=== PATIENT | female | born 1965 | race American Indian/Alaskan Native ===

== ENCOUNTER 2016-06-29 06:38 | Day surgery (SDC) | payer MEDICAID ==
[2016-06-21 13:41] VITALS: BMI 28.3
[2016-06-21 13:46] VITALS: RESP 18
[2016-06-29] MEDS ORDERED: Propofol 10 mg/ml Inj (20 ML) ONE (07:03)
[2016-06-29] MEDS ORDERED: Succinylcholine 200 mg/10 ml Inj IV ONE (07:04)
[2016-06-29] MEDS ORDERED: ePHEDrine 50 mg/ml Inj ONE (07:04)
[2016-06-29] MEDS ORDERED: Rocuronium 10 mg/ml (5 ml) ONE (07:04)
[2016-06-29] MEDS ORDERED: Sevoflurane - Inhalation Anesthetic Liq (250 ml) ONE (07:16)
[2016-06-29] MEDS ORDERED: Lidocaine 1% Inj (20ml) ONE (07:33)
[2016-06-29] MEDS ORDERED: Lidocaine 1% w Epi 1:100,000 Inj ONE (07:43)
[2016-06-29] MEDS ORDERED: Bupivacaine 0.5% Inj(30mL) ONE (08:53)
[2016-06-29] MEDS ORDERED: Bupivacaine 0.5% 50 ML IJ ONE ×2 (09:01→09:21)
[2016-06-29] MEDS ORDERED: Albuterol 0.083% Inhal Sol (2.5 mg/3 mL) UD INH ONE (09:33)
--- NOTE | 2016-06-29 09:33 | PCM.SURG1 ---
Surgeon's Initial Post Op Note - Surgeon's Notes Surgeon: Dr. Reyna [facility] Guest Service Agent: Dr. Ferraro Type of Anesthesia: General LMA Pre-Operative Diagnosis: hidradenitis of left and right axilla Operative Findings: see operative report Post-Operative Diagnosis: see operative report Operation Performed: excision of hidradenitis of left and right axilla Specimen/Specimens Removed: subcutaneous tissue Estimated Blood Loss: EBL {In ML}: 5 Blood Products Given: N/A Drains Used: No Drains Post-Op Condition: Good Date of Surgery/Procedure: 06/29/16 Time of Surgery/Procedure: 09:00
--- NOTE | 2016-06-29 09:37 | CP.SDSHP ---
Same Day Surgery H & P - History Proposed Procedure: excision of hidradenitis of left and right axilla Pre-Op Diagnosis: hidradenitis suppurativa - Previous Medical/Surgical History Cardiac: Other (Hx of [place]) - Allergies Allergies: Allergies aloe Allergy (Intermediate, Verified 06/29/16 07:34) RASH [place] And Derivatives Allergy (Intermediate, Verified 06/29/16 07:34) RASH metronidazole Allergy (Intermediate, Verified 06/29/16 07:34) RASH aspirin Allergy (Verified 06/29/16 07:34) ITCHING clopidogrel bisulfate [From Plavix] Allergy (Verified 06/29/16 07:34) ITCHING hydromorphone Allergy (Verified 06/29/16 07:34) VOMITING ibuprofen Allergy (Verified 06/29/16 07:34) STOMACH BLEEDING ketorolac tromethamine [From Toradol] Allergy (Verified 06/29/16 07:34) ITCHING midazolam HCl [From Versed] Allergy (Verified 06/29/16 07:34) NAUSEA vancomycin Allergy (Verified 06/29/16 07:34) ITCHING morphine Adverse Reaction (Mild, Verified 06/29/16 07:34) ITCHING ciprofloxacin [From Cipro] Adverse Reaction (Verified 06/29/16 07:34) SWELLING ciprofloxacin HCl [From Cipro] Adverse Reaction (Verified 06/29/16 07:34) SWELLING - Physical Exam Vital Signs: Vital Signs 06/29/16 07:30 Temperature 98.2 F Pulse Rate 84 Respiratory 18 Rate Blood Pressure 119/79 O2 Sat by Pulse 98 Oximetry Mental Status: Alert & Oriented x3 Neuro: WNL Heart: WNL Lungs: WNL GI: WNL - {Optional Preform as Required} Abdomen: WNL Integument: Other (hidradenitis suppuritiva of left and right axilla) - Impression Pt. Evaluated Today:Candidate for Anesthesia & Procedure: Yes Short Stay Discharge - Short Stay Discharge Admitting Diagnosis/Reason for Visit: L73.2 Disposition: HOME/ ROUTINE Referrals: Daisy Oviedo MD [Primary Care Provider] -
[2016-06-29] MEDS ORDERED: Oxycodone/Acetaminophen 5/325 mg Tab PO PRN ×2 (10:48→10:49)
[2016-06-29] MEDS ORDERED: Lactated Ringer's 1,000 ML IV ONE (11:45)
[2016-06-29 12:01] VITALS: TEMP 98; O2SAT 94
[2016-06-29] MEDS ORDERED: PHENOBARBITAL 20 MG/5 ML PO SCH (13:00)
[2016-06-29] MEDS ORDERED: PHENYTOIN PO SCH (13:00)
[2016-06-29 14:03] VITALS: BP 100/61; PULSE 92
[2016-07-01] MEDS ORDERED: Enoxaparin 40 mg Syringe SC SCH (09:00)
--- NOTE | 2016-08-24 08:45 | OP ---
PROCEDURE DATE: 06/29/2016 SURGEON: Etienne Reyna MD PLUMBING INSPECTOR: Dr. Ferraro. ANESTHESIA: LMA. PREOPERATIVE DIAGNOSIS: Hidradenitis. POSTOPERATIVE DIAGNOSIS: Hidradenitis. OPERATIVE PROCEEDINGS: As follows: The patient was taken to the operating room and placed supine on the operating table. After induction of anesthesia, the patient's axillas were prepped and draped i n standard surgical fashion. The area of hidradenitis was examined and elliptical incision approxima tely 2 cm in length was made over the right axilla, carried down through the skin and subcutaneous ti ssues. The subcutaneous tissues were used to achieve hemostasis with the electrocautery. Once hemos tasis was achieved, the area was then reapproximated using interrupted 3-0 chromic suture for the sánchez per tissues and 4-0 Monocryl for the skin. Attention was then turned to the left axilla, which had a similar area. This was excised in an elliptical fashion using the #15 blade, carried down through t he skin and subcutaneous tissues. The electrocautery was used to divide the area and achieve hemosta sis. The deeper tissues were then reapproximated using 3-0 chromic suture and the skin was closed us ing 4-0 Monocryl. The patient had 10 mL of 0.25% Marcaine infiltrated into the wounds, was awakened from anesthesia, transported to the recovery room in satisfactory condition. Sponge, instrument, and needle counts were correct at the end of the case. Etienne Reyna MD cc: [id number] TT: 08/23/2016 17:01:22 sn
== END 2016-06-29 13:50 | disposition home or self-care (01) ==
LOC: H.OPSURG 06:38
PROVIDERS: ATTEND Surgery
DX: L73.2 Hidradenitis suppurativa (principal); I25.2 Old myocardial infarction; I25.10 Atherosclerotic heart disease of native coronary artery without angina pectoris; I10 Essential (primary) hypertension; F17.210 Nicotine dependence, cigarettes, uncomplicated; G40.909 Epilepsy, unspecified, not intractable, without status epilepticus; Z86.73 Personal history of transient ischemic attack (TIA), and cerebral infarction without residual deficits

== ENCOUNTER 2016-07-04 09:39 | Emergency (ER) | payer MEDICAID ==
[2016-07-04 09:39] VITALS: BMI 28.3
[2016-07-04 09:55] VITALS: BP 115/73; PULSE 89; RESP 19; TEMP 98.1; O2SAT 100
--- NOTE | 2016-07-04 11:53 | RAD ---
PROCEDURE: Radiographs of the Sacrum and Coccyx HISTORY: fall injury COMPARISON: Lumbar spine radiographs performed 07/03/14, CT of the abdomen and pelvis performed 09/19/13 TECHNIQUE: Frontal and lateral views of the sacrum and coccyx FINDINGS: BONES: Osseous demineralization. No acute displaced fracture identified. SACROILIAC JOINTS: Unremarkable. OTHER FINDINGS: Probable calcified injection granulomas evident. Pelvic calcifications, likely phleboliths. Metallic ring noted consistent with external artifact. IMPRESSION: No acute displaced fracture identified. Additional incidental findings as above.
--- NOTE | 2016-07-04 12:07 | ED PDOC ---
HPI: Back Time Seen by Provider: 07/04/16 10:49 Chief Complaint (Nursing): Back Pain Chief Complaint (Provider): lower back pain History Per: Patient History/Exam Limitations: no limitations Additional Complaint(s): 89yo F with hx of epilepsy i ED after fall onto coccyx 3d ago without relief with perocet and pain on sitting on buttock area. denies: incontinence of UA/BM , numbness/tingling, numbness to LE, abd pain, rectal bleeding or hematuria. denies head injury at time of fall. Past Medical History Reviewed: Historical Data, Nursing Documentation, Vital Signs Vital Signs: Last Vital Signs Temp 98.1 F 07/04/16 09:54 Pulse 89 07/04/16 09:54 Resp 19 07/04/16 09:54 BP 115/73 07/04/16 09:54 Pulse Ox 100 07/04/16 09:54 - Medical History PMH: Arthritis, Asthma, Bronchitis, CAD, CVA, Diverticulitis, HTN, Pneumonia, Seizures, TIA Denies: Anxiety (denies), Dementia, Chronic Kidney Disease - Surgical History Surgical History: Cholecystectomy, Hernia Repair - Family History Family History: States: Unknown Family Hx - Home Medications Home Medications: Ambulatory Orders Medication Instructions Recorded Oxycodone HCl/Acetaminophen 1 tab PO Q6H PRN 07/02/14 [Endocet 10-325 mg Tablet] Phenobarbital 6 ml PO TID 07/02/14 Phenytoin [Dilantin] 6 ml PO TID 07/02/14 Enoxaparin [Lovenox] 40 mg SUBCUT DAILY 06/16/15 ALPRAZolam [Xanax] 1 mg PO BID PRN 07/29/15 oxyCODONE/Acetaminophen [Percocet 5 - 325 mg PO Q4 PRN 06/29/16 5/325 mg Tab] - Allergies Allergies/Adverse Reactions: Allergies Allergy/AdvReac Type Severity Reaction Status Date / Time aloe Allergy Intermediate RASH Verified 06/29/16 07:34 [place] And Derivatives Allergy Intermediate RASH Verified 06/29/16 07:34 metronidazole Allergy Intermediate RASH Verified 06/29/16 07:34 aspirin Allergy ITCHING Verified 06/29/16 07:34 clopidogrel bisulfate Allergy ITCHING Verified 06/29/16 07:34 [From Plavix] hydromorphone Allergy VOMITING Verified 06/29/16 07:34 ibuprofen Allergy STOMACH Verified 06/29/16 07:34 BLEEDING ketorolac tromethamine Allergy ITCHING Verified 06/29/16 07:34 [From Toradol] midazolam HCl [From Versed] Allergy NAUSEA Verified 06/29/16 07:34 vancomycin Allergy ITCHING Verified 06/29/16 07:34 morphine AdvReac Mild ITCHING Verified 06/29/16 07:34 ciprofloxacin [From Cipro] AdvReac SWELLING Verified 06/29/16 07:34 ciprofloxacin HCl AdvReac SWELLING Verified 06/29/16 07:34 [From Cipro] Review of Systems ROS Statement: Except As Marked, All Systems Reviewed And Found Negative Constitutional: Negative for: Weakness, Malaise Musculoskeletal: Positive for: Back Pain Physical Exam - Reviewed Nursing Documentation Reviewed: Yes Vital Signs Reviewed: Yes - Physical Exam Appears: Positive for: Well, Non-toxic, No Acute Distress Head Exam: Positive for: ATRAUMATIC, NORMAL INSPECTION, NORMOCEPHALIC Skin: Positive for: Normal Color, Warm, DRY Cardiovascular/Chest: Positive for: Regular Rate, Rhythm Respiratory: Positive for: CNT, Normal Breath Sounds Gastrointestinal/Abdominal: Positive for: Normal Exam, Bowel Sounds, Soft. Negative for: Tenderness Back: Positive for: Other (lower back pain-sacral area with swelling and tenderess limited ROM to LE. ) Extremity: Positive for: Normal ROM Neurologic/Psych: Positive for: Alert, Oriented - ECG O2 Sat by Pulse Oximetry: 100 - Radiology X-Ray: Interpreted by Me, Read By Radiologist X-Ray Interpretation: No Acute Disease Medical Decision Making Medical Decision Making: dx: contusion to saccral area advised to use donut for pain advise to use percocet for pain but not to abuse it and to f/.u withh PTx and pmd Disposition - Clinical Impression Clinical Impression: Sacral contusion - Patient ED Disposition Is Patient to be Admitted: No Counseled Patient/Family Regarding: Studies Performed, Diagnosis, Need For Followup - Disposition Disposition: Routine/Home Disposition Time: 12:08 Condition: STABLE Instructions: Contusion in Adults (DC)
== END 2016-07-04 12:20 | disposition home or self-care (01) ==
LOC: H.ER 09:39
DX: S30.0XXA Contusion of lower back and pelvis, initial encounter (principal); W19.XXXA Unspecified fall, initial encounter; Y92.89 Other specified places as the place of occurrence of the external cause; G40.909 Epilepsy, unspecified, not intractable, without status epilepticus; F03.90 Unspecified dementia, unspecified severity, without behavioral disturbance, psychotic disturbance, mood disturbance, and anxiety; I12.9 Hypertensive chronic kidney disease with stage 1 through stage 4 chronic kidney disease, or unspecified chronic kidney disease; Z86.73 Personal history of transient ischemic attack (TIA), and cerebral infarction without residual deficits

== ENCOUNTER 2016-09-18 09:30 | Inpatient (IN) | payer MEDICAID ==
[2016-09-18 09:34] VITALS: BMI 30.9
[2016-09-18 10:16] LABS: BASO # 0.1 K/uL (0.0-0.2); BASO % 0.8 % (0.0-2.0); EOS # 0.1 K/uL (0.0-0.7); EOS % 1.4 % (0.0-4.0); HEMATOCRIT 41.3 % (34.0-47.0); LYMPH % 46.5 % (20.0-40.0); MEAN CELL VOLUME 87.6 fl (81.0-99.0); MEAN CORPUSCULAR HEMOGLOBIN 29.1 pg (27.0-31.0); MEAN CORPUSCULAR HGB CONC 33.2 g/dL (33.0-37.0); MEAN PLATELET VOLUME 6.6 fl (7.2-11.7); MONO # 0.5 K/uL (0.0-0.8); MONO % 5.4 % (0.0-10.0); NEUT # 3.9 K/uL (1.8-7.0); NEUT % 45.9 % (50.0-75.0); NRBC % 0.2 % (0.0-0.0); RED CELL DISTRIBUTION WIDTH 14.2 % (11.5-14.5); WHITE BLOOD COUNT 8.5 K/uL (4.8-10.8)
--- NOTE | 2016-09-18 10:16 | ED PDOC ---
HPI:STROKE - Time Time: 10:00 - Historian Historian: Patient - Chief Complaint Chief Complaint: Weakness, Slurred speech, Facial droop - Onset Onset: Hours (1) - Timing Timing: Currently Symptomatic - Location Locate left: Upper extremity - Associated Symptoms Associated symptoms:: Anticoagulant use - Exacerbated by Exacerbated by:: Nothing - Relieved by Relieved by:: Nothing - TPA Positive for Contraindication: Yes Reason tPA is not being Administered: pt takes daily 10 am to 11 am lovenox injections - Notes: Notes:: pt was found by spouse confused and not speaking at around 9am. possible mild right sided facial droop that resolved. hx of stroke 10 yrs ago. chronic right sided contraction from prev injury pt is wc bound with chronic numbness and weakness of bilateral le. left sided weakness noted. hx of seizure disorder. pmd erin sloan. per family at bedside pt was up all night and noticed that she developed left facial droop and left arm weakness, pt injects lovenox daily approx at 10 to 11am for prev cva. allergy to asa and plavix NIHSS Stroke Scale - Date/Time Evaluation Performed Date Performed: 09/18/16 Time Performed: 10:00 When Was NIHSS Performed: Baseline - How Severe is the Stroke Level of Consciousness: 1=Drowsy LOC to Questions: 2=Neither correct LOC to commands: 2=Neither correct Best Gaze: 0=Normal Visual: 0=No visual loss Facial: 0=Normal Motor Arm - Left: 1=Drift noted before 10 sec Motor Arm - Right: NA - Amputation, joint fusion Motor Leg - Left: NA - Amputation, joint fusion Motor Leg - Right: NA - Amputation, joint fusion (per family at bedside have chronic le weakness and numbness) Limb Ataxia: 0=Absent Sensory: 1=Mild to moderate loss Best Language: 2=Severe aphasia Dysarthia: 2=Severe, near unintelligible or worse Extinction & Inattention (Neglect): 0=Normal, no object Score: 11 rTPA Inclusion/Exclusion - Refusal of Treatment Patient Refused Treatment: No - Inclusion Criteria for Altepase Patient is 18 years or Older: Yes The Clinical Diagnosis of Ischemic Stroke That is Causing a Potentially Disabling Neurological Deficit: Yes Time of Onset is Well Established to be Less Than 270 Minute Before Treatment Would Begin: Yes Risk/Benefit Discussed With Patient/Family Member Present: Yes - Exclusion Criteria for Altepase Uncontrolled Hypertension at Time of Treatment (Systolic BP above 185 or Diastolic BP above 110 mmHg): No Active Internal Bleeding: No Known Bleeding Diathesis Including but Not Limited to: Platelets Below 100,000/ mm,PTT Above 40 sec After Heparin Use, Current Use of Oral Anitcoagulant With INR Greater Than 1.7 or PT Greater Than 15 secs: No Evidence of an Intracranial Hemorrhage: No Evidence of Major Acute Infarct With Signs Greater Than 1/3 MCA Territory: No Suspicion of Subarachnoid Hemorrhage on Pretreatment Evaluation Even if CT Head Negative For Hemorrhage: No - Warning to TPA With Conditions Additional Condition (For 3-4.5 Hour Window): Any anticoagulant use prior to admission (Even if INR less than 1.7) Past Medical History Reviewed: Historical Data, Nursing Documentation, Vital Signs Vital Signs: Last Vital Signs Temp 98.7 F 09/18/16 09:32 Pulse 84 09/18/16 10:00 Resp 21 09/18/16 10:00 BP 142/92 H 09/18/16 10:00 Pulse Ox 95 09/18/16 10:00 - Medical History PMH: Arthritis, Asthma, Bronchitis, CAD, CVA, Diverticulitis, HTN, Migraine, Pneumonia, Seizures, TIA Denies: Anxiety (denies), Dementia, Chronic Kidney Disease - Surgical History Surgical History: Cholecystectomy, Hernia Repair - Family History Family History: States: Unknown Family Hx - Living Arrangements Living Arrangements: With Family - Social History Current smoker - smoking cessation education provided: Yes - Home Medications Home Medications: Ambulatory Orders Medication Instructions Recorded Oxycodone HCl/Acetaminophen 1 tab PO Q6H PRN 07/02/14 [Endocet 10-325 mg Tablet] Phenobarbital 6 ml PO TID 07/02/14 Phenytoin [Dilantin] 6 ml PO TID 07/02/14 Enoxaparin [Lovenox] 40 mg SUBCUT DAILY 06/16/15 ALPRAZolam [Xanax] 1 mg PO BID PRN 07/29/15 - Allergies Allergies/Adverse Reactions: Allergies Allergy/AdvReac Type Severity Reaction Status Date / Time aloe Allergy Intermediate RASH Verified 09/18/16 09:32 [place] And Derivatives Allergy Intermediate RASH Verified 09/18/16 09:32 metronidazole Allergy Intermediate RASH Verified 09/18/16 09:32 aspirin Allergy ITCHING Verified 09/18/16 09:32 clopidogrel bisulfate Allergy ITCHING Verified 09/18/16 09:32 [From Plavix] hydromorphone Allergy VOMITING Verified 09/18/16 09:32 ibuprofen Allergy STOMACH Verified 09/18/16 09:32 BLEEDING ketorolac tromethamine Allergy ITCHING Verified 09/18/16 09:32 [From Toradol] midazolam HCl [From Versed] Allergy NAUSEA Verified 09/18/16 09:32 vancomycin Allergy ITCHING Verified 09/18/16 09:32 morphine AdvReac Mild ITCHING Verified 06/29/16 07:34 ciprofloxacin [From Cipro] AdvReac SWELLING Verified 06/29/16 07:34 ciprofloxacin HCl AdvReac SWELLING Verified 06/29/16 07:34 [From Cipro] Review of Systems Review Of Systems: ROS cannot be obtained secondary to pt's inabilty to answer questions. Constitutional: Negative for: Fever, Chills Physical Exam - Reviewed Nursing Documentation Reviewed: Yes Vital Signs Reviewed: Yes - Physical Exam Appears: Positive for: In Acute Distress (mild) Head Exam: Positive for: ATRAUMATIC, NORMAL INSPECTION, NORMOCEPHALIC Eye Exam: Positive for: Normal appearance, EOMI, PERRL Neck: Positive for: Normal, Painless ROM, Supple Cardiovascular/Chest: Positive for: Regular Rate, Rhythm, Chest Non Tender. Negative for: Edema, Gallop Respiratory: Positive for: Normal Breath Sounds. Negative for: Decreased Breath Sounds, Accessory Muscle Use, Crackles Gastrointestinal/Abdominal: Positive for: Normal Exam, Bowel Sounds, Soft. Negative for: Tenderness Back: Positive for: Normal Inspection. Negative for: L CVA Tenderness, R CVA Tenderness Extremity: Positive for: Normal ROM. Negative for: Tenderness, Pedal Edema Neurologic/Psych: Positive for: Alert, Oriented, Motor/Sensory Deficits (left sided weakness), Aphasia. Negative for: Facial Droop - Laboratory Results Result Diagrams: 09/18/16 09:50 09/18/16 10:50 - ECG ECG: Positive for: Interpreted By Me ECG Rhythm: Positive for: Normal QRS, Normal ST Segment, Sinus Rhythm. Negative for: ST/T Changes Interpretation Of Abn EKG: rate of 91 no evidence of ischemia O2 Sat by Pulse Oximetry: 95 Pulse Ox Interpretation: Normal - Radiology X-Ray: Interpreted by Me X-Ray Interpretation: No Acute Disease, Other (port in place) - Progress ED Course And Treament: discussed case with Dr Erin Sloan and Dr Darden and noth agreed that the pt lovenox use chronically and within 24 hours of presentation contraindicated use of tpa, ct head red as negative per rads. will perform cta and see if pt is eligible for clot retrieval. Re-evaluation Time: 10:20 Condition: Improved Medical Decision Making Medical Decision Makinpm pt sx have improved no left ue drift sx are improving more responsvie. cta of head was limited but no occlusion or significant stenosis no aneurysm. will admit to family practice will hold aspirin and plavix given pt allergy. per fp pt attending ernesto per Dr hendricks will have MOC to admit Disposition - Clinical Impression Clinical Impression: Altered mental status - Patient ED Disposition Is Patient to be Admitted: Yes Counseled Patient/Family Regarding: Studies Performed, Diagnosis - Disposition Disposition Time: 14:28 Condition: STABLE
[2016-09-18] MEDS ORDERED: Sodium Chloride 0.9% 500 ML IV ONE (10:23)
--- NOTE | 2016-09-18 10:32 | RAD ---
HISTORY: ams COMPARISON: 06/21/2016 FINDINGS: LUNGS: Mild increased pulmonary vascular congestion. No focal airspace opacity identified. PLEURA: No significant pleural effusion identified, no pneumothorax apparent. CARDIOVASCULAR: Normal. OSSEOUS STRUCTURES: No significant abnormalities. VISUALIZED UPPER ABDOMEN: Upper abdomen is suboptimally evaluated. OTHER FINDINGS: Right-sided medication port with the distal tip of the catheter overlying the projection of the SVC/right atrial junction. IMPRESSION: Increased pulmonary vascular congestion. Please note that chest radiographs have low sensitivity for small pulmonary nodules. If indicated, chest CT should be obtained.
[2016-09-18 10:33] LABS: PARTIAL THROMBOPLASTIN TIME 28.4 Seconds (25.6-37.1)
[2016-09-18] MEDS ORDERED: Iodixanol 320 MG/ML 100 ML BOTTLE IV ONE (11:31)
[2016-09-18] MEDS ORDERED: Sodium Chloride 0.9% 50 ML IV ONE (11:32)
[2016-09-18 11:51] LABS: ALB/GLOB RATIO 1.2 (1.0-2.1); ALKALINE PHOSPHATASE 154 U/L (38-126); ALT/SGPT 29 U/L (9-52); AST/SGOT 22 U/L (14-36); BILIRUBIN,TOTAL 0.2 mg/dl (0.2-1.3); BLOOD UREA NITROGEN 9 mg/dl (7-17); CALCIUM 9.8 mg/dL (8.4-10.2); CARBON DIOXIDE 23 mmol/L (22-30); CHLORIDE 106 mmol/L (98-107); CHOLESTEROL 199 mg/dL (0-199); GFR AFRICAN-AMERICAN > 60; GLUCOSE,RANDOM 87 mg/dL (65-105); POTASSIUM 3.9 MMOL/L (3.6-5.0); SODIUM 140 mmol/l (132-148); TOTAL PROTEIN 7.9 G/DL (6.3-8.2)
[2016-09-18] MEDS ORDERED: Naloxone 0.4 mg/ml Inj (Adult) IVP ONE (14:46)
[2016-09-18 15:34] LABS: RBC URINE 19 /hpf (0-3); URINE BILIRUBIN NEGATIVE (NEGATIVE); URINE BLOOD NEGATIVE (NEGATIVE); URINE COLOR YELLOW (YELLOW); URINE GLUCOSE (UA) NEG (Normal); URINE KETONE TRACE mg/dL (NEGATIVE); URINE LEUKOCYTE ESTERASE NEG Leu/uL (Negative); URINE PROTEIN 30 mg/dL (NEGATIVE); URINE UROBILINOGEN 0.2-1.0 mg/dL (0.2-1.0); WBC URINE 1 /hpf (0-5)
--- NOTE | 2016-09-18 16:53 | CT ---
PROCEDURE: CT angiogram of the brain dated 09/18/2016. HISTORY: Code stroke. COMPARISON: Comparison made with CT scan brain dated 07/02/2014. TECHNIQUE: CT angiography of the intracranial arteries was performed following intravenous injection of approximately 95 cc of Visipaque 320 contrast material. . Coronal and sagittal maximum intensity projection reformated images were generated. This CT exam was performed using one or more of the following dose reduction techniques: Automated exposure control, adjustment of the mA and/or kV according to patient size, and/or use of iterative reconstruction technique. Radiation dose. Total DLP = 1129.24 mGy - cm. FINDINGS: The current study is quite limited due to significant motion artifact which obscures fine soft tissue and bone detail. Note that all the vessels are poorly delineated. The visualized portions of the PE trace and cavernous as well as supraclinoid segments of the carotid arteries appear patent so far as can be seen. The vertebral arteries are poorly delineated however the basilar artery does appear patent. The visualized major branches of the [place] so far as can be seen appear patent. The distal cerebral vasculature of the anterior middle and posterior cerebral arteries are relatively symmetric so far as can be seen. No large aneurysm nor vascular malformation. This should be repeated. . Note made of of apparent partially empty sella. No gross on enhancing masses or collections. No evidence of a very large acute infarct on this limited study. Impression: Very limited exam as above. Note and definitive radiographic evidence of occlusion nor large aneurysm nor vascular malformation however the study should be repeated of. See above discussion for additional findings.
[2016-09-18] MEDS: Sodium Chloride 0.45% 1,000 ML IV SCH (17:44)
[2016-09-18] MEDS: Phenytoin 100 mg/2 ml Inj IVPB SCH (19:00)
--- NOTE | 2016-09-18 21:09 | CT ---
EXAM: CT Head Without Intravenous Contrast CLINICAL HISTORY: 51 years old, female; Signs and symptoms; Altered mental status/memory loss and other: Numbness and weakness TECHNIQUE: Axial computed tomography images of the head/brain without intravenous contrast. This CT exam was performed using one or more of the following dose reduction techniques: automated exposure control, adjustment of the mA and/or kV according to patient size, and/or use of iterative reconstruction technique. EXAM DATE/TIME: 09/18/2016 8:14 PM COMPARISON: Recent CT angiogram of the brain 09/18/2016 11:56 AM FINDINGS: ARTIFACTS: Exam is overall limited, secondary to asymmetric positioning of the patient's head in the CT scan and streak artifact. BRAIN: Diffuse, mild, age-related cortical atrophy and ventriculomegaly. No definite acute abnormalities. No acute hemorrhage seen within the brain. No acute extra-axial fluid collections visualized. No definite intracranial mass effect. VENTRICLES: See above. BONES/JOINTS: No acute fractures or other acute bony abnormality noted. SOFT TISSUES: No acute abnormality of the visualized soft tissues is seen. SINUSES: Visualized paranasal sinuses appear clear. MASTOID AIR CELLS: Mastoid air cells appear clear. IMPRESSION: - Limited exam. No definite acute findings seen within the brain. - See above for remaining findings.
--- NOTE | 2016-09-18 21:28 | PCM.RRTMUL ---
<Machelle Salmon - Last Filed: 09/18/16 21:26> CURB ATTENDANT Nurse Assessment - Situation CURB ATTENDANT Responder Arrival Time:: 20:10 Location:: tele Room Number:: 418/2 CURB ATTENDANT Reason for Call: Possible Stroke CURB ATTENDANT Called By: RN - IV IV Inserted during CURB ATTENDANT?: No - Respiratory Oxygen Delivery Method:: Room Air - Diagnostic Test Ordered EKG:: Yes (NSR, no acute changes ) CT Scan:: Yes (unchanged from previous CT done in ED hours prior) - Stat Labs Ordered CURB ATTENDANT Stat Labs Ordered:: CBC CURB ATTENDANT Other Labs Ordered:: CMP CPR started during CURB ATTENDANT?: No - Vital Signs Blood Pressure:: 100/67 Pulse Rate:: 74 Respiratory Rate:: 18 Temperature:: 98.4 F - Time CURB ATTENDANT Ended Time CURB ATTENDANT Ended:: 20:45 - Vital Signs at end of CURB ATTENDANT Blood Pressure:: 111/68 Pulse Rate:: 83 Respiratory Rate:: 20 - Recommendations 5) CURB ATTENDANT Level of Care Recommendations: Remain in current setting - A) Initial Vital Signs: Blood Pressure: 111/68 Pulse Rate: 83 - B) Neurological Status (Select all that apply): Responsive - Constitutional Appears: Older Than Stated Age - Head Additional Comments: some facial asymmetry - Respiratory Exam Respiratory Exam: Clear to Ausculation Bilateral, NORMAL BREATHING PATTERN. absent: Wheezes - Cardiovascular Exam Cardiovascular Exam: REGULAR RHYTHM, +S1, +S2 - GI/Abdominal Exam GI & Abdominal Exam: Soft, Normal Bowel Sounds - Neurological Exam Neurological Exam: Awake, Motor Sensory Deficit Plan - A. End of CURB ATTENDANT Vital Signs: Blood Pressure: 111/68 Pulse Rate: 83 - B. Assessment of Findings&Treatment Plan 51 y/o female CURB ATTENDANT called for weakness and numbness, pt was admitted a couple of hours earlier today, for code stroke CT head ordered STAT, to rule out acute hemorrhage CBC CMP labs were not obtained during CURB ATTENDANT, as access was an issue but it will be obtained , f/u results <Carson Richards - Last Filed: 09/21/16 20:28> - C) Respiratory Oxygen Delivery Method: Nasal Cannula @L/min (I saw and examined this patient shoulder to shoulder to Dr Salmon. The assessment and plan outlined indicate my direct input. The patient was admitted with a Diagnosis of Acute on chronic CVA with right facial weakness which according to the Nurse had resolved and returned. # Diagnosis remained Acute on chronic CVA. A repeated CT of Brain was non diagnostic because of motion artifact. Blood work was not drawn because of difficult veins and the family member prohibiting further trial to acquire blood for lab work. The patient was continued with the indicated treatment along with neuro checks. Carson Richards MD)
[2016-09-18] MEDS: Enoxaparin 40 mg Syringe SC SCH (21:44)
[2016-09-18 23:42] LABS: HEMATOCRIT 40.1 % (34.0-47.0); MEAN CELL VOLUME 87.5 fl (81.0-99.0); MEAN CORPUSCULAR HEMOGLOBIN 28.8 pg (27.0-31.0); MEAN CORPUSCULAR HGB CONC 32.9 g/dL (33.0-37.0); RED CELL DISTRIBUTION WIDTH 14.4 % (11.5-14.5); WHITE BLOOD COUNT 8.8 K/uL (4.8-10.8)
[2016-09-18 23:50] LABS: ALB/GLOB RATIO 1.2 (1.0-2.1); ALKALINE PHOSPHATASE 163 U/L (38-126); ALT/SGPT 26 U/L (9-52); AST/SGOT 25 U/L (14-36); BILIRUBIN,TOTAL 0.4 mg/dl (0.2-1.3); BLOOD UREA NITROGEN 6 mg/dl (7-17); CALCIUM 9.1 mg/dL (8.4-10.2); CARBON DIOXIDE 25 mmol/L (22-30); CHLORIDE 105 mmol/L (98-107); GFR AFRICAN-AMERICAN > 60; GLUCOSE,RANDOM 82 mg/dL (65-105); POTASSIUM 4.3 MMOL/L (3.6-5.0); SODIUM 140 mmol/l (132-148); TOTAL PROTEIN 7.5 G/DL (6.3-8.2)
[2016-09-19] MEDS: Phenytoin 100 mg/2 ml Inj IVPB SCH ×3 (00:35→17:47)
[2016-09-19] MEDS: PHENOBARBITAL IV SCH ×3 (00:36→17:46)
[2016-09-19] MEDS: SODIUM CHLORIDE 0.9% IV SCH ×3 (00:36→17:46)
[2016-09-19] MEDS: Dextrose 5%/0.45% NS 1,000 ML IV SCH (00:45)
[2016-09-19 00:53] LABS: RBC URINE 9 /hpf (0-3); URINE BILIRUBIN NEGATIVE (NEGATIVE); URINE BLOOD NEGATIVE (NEGATIVE); URINE COLOR YELLOW (YELLOW); URINE GLUCOSE (UA) NEG (Normal); URINE KETONE NEGATIVE (NEGATIVE); URINE LEUKOCYTE ESTERASE NEG Leu/uL (Negative); URINE PROTEIN NEGATIVE (NEGATIVE); URINE UROBILINOGEN 0.2-1.0 mg/dL (0.2-1.0); WBC URINE 1 /hpf (0-5)
[2016-09-19] MEDS: Sodium Chloride 0.45% 1,000 ML IV SCH ×2 (05:09→14:00)
--- NOTE | 2016-09-19 07:42 | CARD ---
APPROVED REPORT EKG Measurement Heart [id number] MA [id number] <Conclusion> Normal sinus rhythm Normal ECG
--- NOTE | 2016-09-19 09:04 | CT ---
PROCEDURE: CT HEAD WITHOUT CONTRAST. HISTORY: COMPARISON: Code stroke. TECHNIQUE: Axial computed tomography images were obtained through the head/brain without intravenous contrast. Radiation dose: Total exam DLP = 1403.41 mGy-cm. This CT exam was performed using one or more of the following dose reduction techniques: Automated exposure control, adjustment of the mA and/or kV according to patient size, and/or use of iterative reconstruction technique. FINDINGS: HEMORRHAGE: No intracranial hemorrhage. BRAIN: No mass effect or edema. No atrophy or chronic microvascular ischemic changes.No CT evidence of acute territorial infarct. VENTRICLES: Unremarkable. No hydrocephalus. CALVARIUM: Unremarkable. PARANASAL SINUSES: Unremarkable as visualized. No significant inflammatory changes. MASTOID AIR CELLS: Unremarkable as visualized. No inflammatory changes. OTHER FINDINGS: None. IMPRESSION: No CT evidence of acute intracranial hemorrhage or acute territorial infarct. Acute infarction may be CT occult within first 24 hours. If a focal deficit persists, consider followup CT or MRI for further evaluation. Discussed with Dr. Luu at 10:01 a.m. on 09/18/2016. Notified by creative technologist at 9:55 a.m..
[2016-09-19] MEDS: Enoxaparin 40 mg Syringe SC SCH (09:43)
--- NOTE | 2016-09-19 16:20 | CON ---
DATE: 09/19/2016 CHIEF COMPLAINT: Transient left extremity paresthesias, questionable left facial droop. HISTORY OF PRESENT ILLNESS: This is a 51-year-old woman with past medical history of chronic back pa in, who has a history of seizures on phenobarbital as well as Dilantin as per her neurologist, Dr. Bethel lima; asthma; bronchitis; CAD; history of cholecystectomy and hernia repair, who came to the hospital b ecause the patient had a mild facial droop on the left as well as left-sided weakness, which r esolved. 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 She has chronic paresthesias and some weakness in the legs from chronic lumbosacral radiculopathy and she is on chronic opiates as well as Endocet for pain. Currently, she had also some paresthesias on the r ight side of the face last night. Otherwise, no focal neurological deficits were seen on examination . She moves all extremities when she was defecating on the commode, but lying on her side, she does not want to lie on her back due to chronic low back pain. She takes Lovenox injections because appar ently SHE IS ALLERGIC TO PLAVIX AND ASPIRIN. DTRs are 1+ throughout and absent at the ankles. Coord ination: Lekakz-os-hebb intact. She moves all extremities. There is no facial droop seen. She is conversing with her quite well. CT head showed no acute intracranial abnormalities. She did not tolerate an MRI scan of the brain despite Ativan. Her neuro exam is nonfocal at this time. She is currently on her Dilantin and phenobarbital seizure prophylaxis. PAST MEDICAL HISTORY: Seizure disorder, history of coronary artery disease, chronic lumbosacral radi culopathy, asthma, anxiety. PAST SURGICAL HISTORY: Cholecystectomy, hernia repair. FAMILY HISTORY: Noncontributory. SOCIAL HISTORY: Social smoker. No ETOH abuse or illicit drug use. REVIEW OF SYSTEMS: A 14-point review of systems is negative except the HPI. PHYSICAL EXAMINATION: VITAL SIGNS: Temperature 98.6, pulse rate 84, blood pressure 106/69, respiratory rate 20, oxygen 100 % on room air. HEART: S1, S2, normal rate and rhythm. No murmurs, rubs, or gallops. ABDOMEN: Soft, nontender, nondistended. Bowel sounds are present. EXTREMITIES: No clubbing, no cyanosis. Peripheral pulses 2+ felt bilaterally. NEUROLOGIC: The patient is alert. Oriented to person, place, month and year. Speech is fluent, wit hout any errors. Cranial nerves II through XII are intact. MOTOR: Has a contracted right upper extremity from previous injury. Otherwise, moves all extremitie s equally. Tone is normal in upper and lower extremities. SENSORY: Light touch, pinprick . DTRs are 2+ throughout and 1 at the ankles. COORDINATION: Vrglfi-cr-ohnp intact. GAIT: Deferred for now. LABORATORY DATA: U-tox is positive for barbiturates. She is on phenobarbital. Sodium 140, potassiu m 4.3, chloride 105, carbon dioxide 25, BUN of 6, creatinine 0.5, random glucose 82. ASSESSMENT AND PLAN: This is a 51-year-old woman with past medical history of hypertension, dyslipid emia, coronary artery disease, chronic lumbosacral radiculopathy, chronic back pain on opiates, histo ry of seizure disorder on Dilantin and phenobarbital, history of hypertension, migraines, who present ed with transient left arm weakness and left paresthesias. She has chronic paresthesia of the lower extremities and weakness from chronic low back pain. CT head showed no acute intracranial abnormalit y. Currently, I doubt that this is a stroke at all. It seems like she has transient cerebral hypope rfusion, low blood pressure systolically and diastolically throughout her hospital course, which coul d have caused her to have generalized weakness and paresthesias. She does have chronic low back pain that could be an underlying chronic lumbosacral radiculopathy. She had an [facility]. At this time, would recommend: 1. To continue with her phenobarbital and Dilantin at current doses for seizure prevention. 2. Need outpatient or subacute rehabilitation for chronic low back pain, chronic lower extremity wea kness. Physical therapy and occupational therapy evaluation. 3. Avoid any opiates in this patient. The patient only wants opiates for pain, which I do not disag ree. She needs some either baclofen 20 mg p.o. at bedtime for musculoskeletal pain or Neurontin. At this time, continue with current present medical management. No further neurological workup at this time. We will sign off and she can follow with her neurologist as an outpatient with Dr. Hernandez. Mayito Darden MD cc: [phone] TT: 09/19/2016 16:20:24 Confirmation # [id number] Dictation # [id number]
--- NOTE | 2016-09-19 16:20 | HP ---
CHIEF COMPLAINT: Altered mental status. HISTORY OF PRESENT ILLNESS: This is a 51-year-old female, known case of status post CVA and seizure disorders, on multiple medications, including narcotics, who was found with very poor mentation and w as brought to Emergency Room and was admitted for further management. REVIEW OF SYSTEMS: Positive for altered mental status. Review of systems otherwise was negative for loss of consciousness, headache, chest pain, shortness of breath, nausea, vomiting, diarrhea, consti pation, any new joint or extremity pain. patient pain. Review of systems was also posit milka for weakness, slurred speech, and questionable facial droop. PAST MEDICAL HISTORY: Is significant for history of CVA, hypertension, a right hemiparesis, arthriti s, asthma, bronchitis, coronary artery disease, migraine, anxiety, dementia, chronic kidney disease. PAST SURGICAL HISTORY: Remarkable for hernia repair and cholecystectomy. PERSONAL HISTORY: The patient is on multiple narcotics medication, but currently denies history of s moking, alcohol, or substance abuse. MEDICATIONS: The patient is on Percocet, phenobarbital, Dilantin, Xanax, and Lovenox. ALLERGIES: THE PATIENT IS ALLERGIC TO METRONIDAZOLE, ASPIRIN, PLAVIX, HYTRIN, DILAUDID, IBUPROFEN, T ORADOL, VERSED, VANCOMYCIN, MORPHINE, CIPRO. PHYSICAL EXAMINATION: GENERAL: Well-built, fairly-nourished 51-year-old female in no acute distress. VITAL SIGNS: Temperature 98, pulse 72, respiration 18, blood pressure 102/60. HEENT: Pupils reacting to light. No JVD, no thyromegaly, no lymphadenopathy. No nystagmus. Normoc ephalic, atraumatic skull. HEART: S1, S2 normal, regular. No significant murmur, gallop, or rub is heard. LUNGS: Exam shows good bilateral air exchange. No rales or rhonchi. ABDOMEN: Soft, nontender, no organomegaly, no fluid. Bowel sounds are plus. EXTREMITIES: No calf swelling, no tenderness, no acute ischemia. CENTRAL NERVOUS SYSTEM: The patient is status post CVA and has right hemiparesis, but there is no si gn of any acute gross focal motor or sensory neurological deficit. At this time, patient seems to be at her baseline. DIAGNOSTIC DATA: Available diagnostic data reviewed. Urine toxicology is positive for barbiturates. Dilantin level is 7.4. Urinalysis otherwise is negative. Sodium 140, potassium 3.9, chloride 106, bicarbonate 23, BUN 9, creatinine 0.5. SMA-12 is unremarkable. WBC 8.8, hemoglobin 13.2, hematocri t 40.1, platelet 460. CAT scan of head is unremarkable. CT angiograph is unremarkable. ADMITTING IMPRESSION: Altered mental status, most likely drug overdose, history of cerebrovascular a ccident with right hemiparesis, seizure disorder, hypertension, coronary artery disease, asthma. PLAN: As ordered. Case and plan discussed with patient. Julio Ferguson MD cc: [id number] TT: 09/19/2016 16:18:50 kaden
[2016-09-19] MEDS ORDERED: Phenytoin 100 mg/2 ml Inj IVPB SCH (18:00)
[2016-09-20] MEDS: Phenytoin 100 mg/2 ml Inj IVPB SCH ×3 (01:04→17:37)
[2016-09-20] MEDS: SODIUM CHLORIDE 0.9% IV SCH ×3 (01:06→17:38)
[2016-09-20] MEDS: PHENOBARBITAL IV SCH ×3 (01:06→17:38)
[2016-09-20 06:55] LABS: HEMATOCRIT 41.8 % (34.0-47.0); MEAN CELL VOLUME 87.9 fl (81.0-99.0); MEAN CORPUSCULAR HEMOGLOBIN 28.5 pg (27.0-31.0); MEAN CORPUSCULAR HGB CONC 32.4 g/dL (33.0-37.0); RED CELL DISTRIBUTION WIDTH 13.8 % (11.5-14.5); WHITE BLOOD COUNT 8.3 K/uL (4.8-10.8)
[2016-09-20 07:38] LABS: ALB/GLOB RATIO 1.2 (1.0-2.1); ALKALINE PHOSPHATASE 169 U/L (38-126); ALT/SGPT 29 U/L (9-52); AST/SGOT 26 U/L (14-36); BILIRUBIN,TOTAL 0.4 mg/dl (0.2-1.3); BLOOD UREA NITROGEN 5 mg/dl (7-17); CALCIUM 9.3 mg/dL (8.4-10.2); CARBON DIOXIDE 23 mmol/L (22-30); CHLORIDE 104 mmol/L (98-107); GFR AFRICAN-AMERICAN > 60; GLUCOSE,RANDOM 80 mg/dL (65-105); POTASSIUM 3.8 MMOL/L (3.6-5.0); SODIUM 138 mmol/l (132-148); TOTAL PROTEIN 7.7 G/DL (6.3-8.2)
[2016-09-20] MEDS: Enoxaparin 40 mg Syringe SC SCH (10:33)
[2016-09-20] MEDS: Dextrose 5%/0.45% NS 1,000 ML IV SCH ×2 (10:35→21:35)
--- NOTE | 2016-09-20 11:06 | US ---
HISTORY: left flank pain COMPARISON: None. TECHNIQUE: Sonographic evaluation of the abdomen. FINDINGS: LIVER: Measures 20.3 cm. This is enlarged. Normal echogenicity of the liver parenchyma. No mass. No intrahepatic bile duct dilatation. GALLBLADDER: Status post cholecystectomy COMMON BILE DUCT: Measures 4 mm. No stones. No dilatation. PANCREAS: Unremarkable as visualized. No mass. No ductal dilatation. RIGHT KIDNEY: Measures 12.0cm. Normal echogenicity. No calculus, mass, or hydronephrosis. LEFT KIDNEY: Measures 11.2cm. Normal echogenicity. No calculus, mass, or hydronephrosis. SPLEEN: Normal in size and contour. No mass. AORTA: No aneurysmal dilatation. IVC: Unremarkable. OTHER FINDINGS: None. IMPRESSION: Hepatomegaly. Status post cholecystectomy. Otherwise unremarkable examination.
[2016-09-20] MEDS ORDERED: Lactulose 10 gm/15 ml Syrup PO PRN (14:00)
--- NOTE | 2016-09-20 15:24 | CP.PCM.PN ---
<Franklyn Alicea - Last Filed: 09/20/16 15:22> Subjective - Date & Time of Evaluation Date of Evaluation: 09/20/16 Time of Evaluation: 07:22 - Subjective Subjective: Patient seen and examined at bedside with attending. No acute events overnight. Complains of left flank pain. BM normal. No hematuria. Afebrile. No chills. Also complains of trouble swallowing. Swallow eval pending. Objective - Vital Signs/Intake and Output Vital Signs (last 24 hours): Temp Pulse Resp BP Pulse Ox 98.1 F 79 20 119/68 95 09/20/16 12:00 09/20/16 12:00 09/20/16 12:00 09/20/16 12:00 09/20/16 12:00 Intake and Output: 09/20/16 09/20/16 06:59 18:59 Intake Total 1250 Output Total 1000 Balance 250 - Medications Medications: Current Medications Docusate Sodium (Colace) 100 mg PO BID PRN PRN Reason: constipation Enoxaparin Sodium (Lovenox) 40 mg SC DAILY RUTH PRN Reason: Protocol Last Admin: 09/20/16 10:33 Dose: 40 mg Phenobarbital 30 mg/ Sodium (Chloride) 50.4615 mls @ 100.923 mls/hr IV Q8 [facility] Last Admin: 09/20/16 10:34 Dose: 100.923 mls/hr Dextrose/Sodium Chloride (Dextrose 5%/0.45% Ns 1000 Ml) 1,000 mls @ 100 mls/hr IV .Q10H [facility] Stop: 09/21/16 23:48 Last Admin: 09/20/16 10:35 Dose: 100 mls/hr Lactulose (Enulose) 10 gm PO DAILY PRN PRN Reason: Constipation Pantoprazole Sodium (Protonix Inj) 40 mg IVP DAILY [facility] Last Admin: 09/20/16 10:34 Dose: 40 mg Phenytoin (Dilantin) 100 mg IVPB Q8 [facility] Last Admin: 09/20/16 10:33 Dose: 100 mg - Labs Labs: 09/20/16 06:30 09/20/16 06:30 PT 11.5 Seconds (9.8-13.1) 09/18/16 09:50 INR 1.0 (0.9-1.2) 09/18/16 09:50 APTT 28.4 Seconds (25.6-37.1) 09/18/16 09:50 - Constitutional Appears: Non-toxic, No Acute Distress - Head Exam Head Exam: NORMAL INSPECTION - Eye Exam Eye Exam: Normal appearance - Respiratory Exam Respiratory Exam: Clear to Ausculation Bilateral, NORMAL BREATHING PATTERN - Cardiovascular Exam Cardiovascular Exam: REGULAR RHYTHM, +S1, +S2. absent: Murmur - GI/Abdominal Exam GI & Abdominal Exam: Soft, Normal Bowel Sounds. absent: Tenderness - Extremities Exam Extremities Exam: Normal Inspection Additional comments: contracted RUE - Neurological Exam Neurological Exam: Alert, Awake - Psychiatric Exam Psychiatric exam: Normal Affect, Normal Mood - Skin Skin Exam: Dry, Intact, Normal Color, Warm Assessment and Plan (1) Dysphagia Assessment & Plan: Swallow eval pending GI consulted, appreciate recommendations Status: Acute (4) Altered mental status Assessment & Plan: Improved. Neuro on board, appreciate recommendations Will continue management as per recommendations PT eval ordered, dispo planning Status: Acute (5) Abdominal pain Assessment & Plan: Left flank pain, no hematuria or GI changes Will obtain abd u/s to further evaluate Continue to monitor Status: Acute <Julio Ferguson - Last Filed: 09/27/16 17:20> Objective - Vital Signs/Intake and Output Vital Signs (last 24 hours): Temp Pulse Resp BP Pulse Ox 98.3 F 89 18 104/72 98 09/26/16 16:18 09/26/16 16:18 09/26/16 16:18 09/26/16 16:18 09/26/16 16:18 - Labs Labs: 09/26/16 07:15 09/26/16 07:15 PT 11.5 Seconds (9.8-13.1) 09/18/16 09:50 INR 1.0 (0.9-1.2) 09/18/16 09:50 APTT 28.4 Seconds (25.6-37.1) 09/18/16 09:50 Assessment and Plan - Assessment and Plan (Free Text) Assessment: Patient was personally seen and examined by me in rounds with residents. Available labs and diagnostic data reviewed. Case, Patient's condition and management plan discussed with residents in rounds. Agree with resident's documentation. Plan: As ordered. Julio Ferguson MD
--- NOTE | 2016-09-20 16:40 | CARD ---
APPROVED REPORT EKG Measurement Heart [id number] <Conclusion> Normal sinus rhythm Normal ECG
--- NOTE | 2016-09-20 23:56 | CP.PCM.CON ---
History of Present Illness - History of Present Illness History of Present Illness: 51 yo female admitted with lleft facial droop and left sided weakness for possible CVA. Had stroke 10 years ago. No discreet lesions seen on CT. Having pain and difficulty swalllowing. Review of Systems - EENT Eyes: absent: Blurred Vision Ears: absent: Decreased Hearing Nose/Mouth/Throat: absent: Epistaxis - Breasts Breasts: absent: Change in Shape - Cardiovascular Cardiovascular: absent: Chest Pain - Respiratory Respiratory: absent: Cough - Gastrointestinal Gastrointestinal: As Per HPI Past Patient History - Past Medical History & Family History Past Medical History?: Yes - Past Social History Smoking Status: Former Smoker - CARDIAC Hx Cardiac Disorders: No Hx Hypertension: Yes - PULMONARY Hx Respiratory Disorders: Yes (asthma) Hx Pneumonia: Yes - NEUROLOGICAL HX Cerebrovascular Accident: Yes Hx Migraine: Yes Hx Seizures: Yes - HEENT Hx HEENT Problems: No - RENAL Hx Chronic Kidney Disease: No - ENDOCRINE/METABOLIC Hx Endocrine Disorders: No - HEMATOLOGICAL/ONCOLOGICAL Hx Blood Disorders: No - INTEGUMENTARY Hx Dermatological Problems: No - MUSCULOSKELETAL/RHEUMATOLOGICAL Hx Musculoskeletal Disorders: Yes (back pain) Hx Arthritis: Yes Hx Falls: Yes (Fall 2 years ago) - GASTROINTESTINAL Hx Bowel Surgery: Yes Hx Diverticulitis: Yes - GENITOURINARY/GYNECOLOGICAL Hx Genitourinary Disorders: No - PSYCHIATRIC Hx Psychophysiologic Disorder: No Hx Substance Use: No - SURGICAL HISTORY Hx Cholecystectomy: Yes Hx Herniorrhaphy: Yes - ANESTHESIA Hx Anesthesia: Yes Hx Anesthesia Reactions: No Hx Malignant Hyperthermia: No Meds Allergies/Adverse Reactions: Allergies Allergy/AdvReac Type Severity Reaction Status Date / Time aloe Allergy Intermediate RASH Verified 09/18/16 09:32 Obion And Derivatives Allergy Intermediate RASH Verified 09/18/16 09:32 metronidazole Allergy Intermediate RASH Verified 09/18/16 09:32 aspirin Allergy ITCHING Verified 09/18/16 09:32 clopidogrel bisulfate Allergy ITCHING Verified 09/18/16 09:32 [From Plavix] hydromorphone Allergy VOMITING Verified 09/18/16 09:32 ibuprofen Allergy STOMACH Verified 09/18/16 09:32 BLEEDING ketorolac tromethamine Allergy ITCHING Verified 09/18/16 09:32 [From Toradol] lidocaine Allergy RASH Verified 09/18/16 17:32 midazolam HCl [From Versed] Allergy NAUSEA Verified 09/18/16 09:32 vancomycin Allergy ITCHING Verified 09/18/16 09:32 morphine AdvReac Mild ITCHING Verified 06/29/16 07:34 ciprofloxacin [From Cipro] AdvReac SWELLING Verified 06/29/16 07:34 ciprofloxacin HCl AdvReac SWELLING Verified 06/29/16 07:34 [From Cipro] - Medications Medications: Current Medications Docusate Sodium (Colace) 100 mg PO BID PRN PRN Reason: constipation Enoxaparin Sodium (Lovenox) 40 mg SC DAILY RUTH PRN Reason: Protocol Last Admin: 09/20/16 10:33 Dose: 40 mg Phenobarbital 30 mg/ Sodium (Chloride) 50.4615 mls @ 100.923 mls/hr IV Q8 [facility] Last Admin: 09/20/16 17:38 Dose: 100.923 mls/hr Dextrose/Sodium Chloride (Dextrose 5%/0.45% Ns 1000 Ml) 1,000 mls @ 100 mls/hr IV .Q10H [facility] Stop: 09/21/16 23:48 Last Admin: 09/20/16 21:35 Dose: 100 mls/hr Lactulose (Enulose) 10 gm PO DAILY PRN PRN Reason: Constipation Pantoprazole Sodium (Protonix Inj) 40 mg IVP DAILY [facility] Last Admin: 09/20/16 10:34 Dose: 40 mg Phenytoin (Dilantin) 100 mg IVPB Q8 [facility] Last Admin: 09/20/16 17:37 Dose: 100 mg Physical Exam - Head Exam Head Exam: ATRAUMATIC - Eye Exam Eye Exam: Normal appearance - ENT Exam ENT Exam: Mucous Membranes Moist - Neck Exam Neck exam: Positive for: Normal Inspection - Respiratory Exam Respiratory Exam: Clear to Auscultation Bilateral - Cardiovascular Exam Cardiovascular Exam: REGULAR RHYTHM, +S1, +S2 - GI/Abdominal Exam GI & Abdominal Exam: Normal Bowel Sounds, Soft. absent: Tenderness Results - Vital Signs Recent Vital Signs: Last Vital Signs Temp 98.7 F 09/20/16 19:24 Pulse 86 09/20/16 19:24 Resp 20 09/20/16 19:24 BP 114/69 09/20/16 19:24 Pulse Ox 97 09/20/16 19:24 - Labs Result Diagrams: 09/20/16 06:30 09/20/16 06:30 Labs: Laboratory Results - last 24 hr 09/20/16 09/20/16 06:30 06:30 WBC 8.3 RBC 4.76 Hgb 13.5 Hct 41.8 MCV 87.9 MCH 28.5 MCHC 32.4 L RDW 13.8 Plt Count 473 H Sodium 138 Potassium 3.8 Chloride 104 Carbon Dioxide 23 Anion Gap 14 BUN 5 L Creatinine 0.5 L Est GFR ( Amer) > 60 Est GFR (Non-Af Amer) > 60 Random Glucose 80 Calcium 9.3 Total Bilirubin 0.4 AST 26 ALT 29 Alkaline Phosphatase 169 H Total Protein 7.7 Albumin 4.2 Globulin 3.5 Albumin/Globulin Ratio 1.2 Assessment & Plan (1) Dysphagia Assessment and Plan: Pantoprazole started for possible GERD or esophagitis. Awaiting swallowing evaluation Status: Acute
[2016-09-21] MEDS: PHENOBARBITAL IV SCH ×3 (02:00→16:56)
[2016-09-21] MEDS: SODIUM CHLORIDE 0.9% IV SCH ×3 (02:00→16:56)
[2016-09-21] MEDS: Phenytoin 100 mg/2 ml Inj IVPB SCH ×3 (02:00→16:55)
[2016-09-21] MEDS: Dextrose 5%/0.45% NS 1,000 ML IV SCH ×2 (05:18→16:50)
[2016-09-21] MEDS: Enoxaparin 40 mg Syringe SC SCH (09:41)
--- NOTE | 2016-09-21 11:14 | CP.PCM.PN ---
Subjective - Date & Time of Evaluation Date of Evaluation: 09/21/16 Time of Evaluation: 08:11 - Subjective Subjective: Patient seen and examined at bedside with attending. No acute events overnight. No complaints of pain. NPO maintained, failed swallow eval. BM normal. Afebrile. No chills. Seen by GI yesterday. Patient to have barium swallow today. Objective - Vital Signs/Intake and Output Vital Signs (last 24 hours): Temp Pulse Resp BP Pulse Ox 98.6 F 94 H 20 116/75 98 09/21/16 08:00 09/21/16 08:00 09/21/16 08:00 09/21/16 08:00 09/21/16 08:00 Intake and Output: 09/21/16 09/21/16 06:59 18:59 Intake Total 1200 Balance 1200 - Medications Medications: Current Medications Docusate Sodium (Colace) 100 mg PO BID PRN PRN Reason: constipation Enoxaparin Sodium (Lovenox) 40 mg SC DAILY RUTH PRN Reason: Protocol Last Admin: 09/21/16 09:41 Dose: 40 mg Phenobarbital 30 mg/ Sodium (Chloride) 50.4615 mls @ 100.923 mls/hr IV Q8 [facility] Last Admin: 09/21/16 11:09 Dose: 100.923 mls/hr Dextrose/Sodium Chloride (Dextrose 5%/0.45% Ns 1000 Ml) 1,000 mls @ 100 mls/hr IV .Q10H [facility] Stop: 09/21/16 23:48 Last Admin: 09/21/16 05:18 Dose: 100 mls/hr Lactulose (Enulose) 10 gm PO DAILY PRN PRN Reason: Constipation Pantoprazole Sodium (Protonix Inj) 40 mg IVP DAILY [facility] Last Admin: 09/21/16 09:41 Dose: 40 mg Phenytoin (Dilantin) 100 mg IVPB Q8 [facility] Last Admin: 09/21/16 09:40 Dose: 100 mg - Labs Labs: 09/20/16 06:30 09/20/16 06:30 PT 11.5 Seconds (9.8-13.1) 09/18/16 09:50 INR 1.0 (0.9-1.2) 09/18/16 09:50 APTT 28.4 Seconds (25.6-37.1) 09/18/16 09:50 - Constitutional Appears: Well, Non-toxic, No Acute Distress - Head Exam Head Exam: ATRAUMATIC, NORMAL INSPECTION, NORMOCEPHALIC - Eye Exam Eye Exam: Normal appearance - Respiratory Exam Respiratory Exam: Clear to Ausculation Bilateral, NORMAL BREATHING PATTERN - Cardiovascular Exam Cardiovascular Exam: REGULAR RHYTHM, +S1, +S2. absent: Murmur - GI/Abdominal Exam GI & Abdominal Exam: Soft, Normal Bowel Sounds. absent: Tenderness - Extremities Exam Extremities Exam: Normal Inspection (rue contracted) - Neurological Exam Neurological Exam: Alert, Awake - Psychiatric Exam Psychiatric exam: Normal Affect, Normal Mood - Skin Skin Exam: Dry, Intact, Normal Color, Warm Assessment and Plan (1) Dysphagia Assessment & Plan: Failed swallow eval. NPO maintained For barium swallow today Continue to monitor GI on board, appreciate recommendations possible 2ndary to previous CVA. Neuro input appreciated Status: Acute (2) Abdominal pain Assessment & Plan: Improved Abdomen ultrasound reviewed, noted hepatomegaly GI on board appreciate recommendations Status: Acute (3) History of CVA with residual deficit Assessment & Plan: Neuro consulted, appreciate recommendations Possibly dysphagia due to residual effects Status: Chronic (4) Altered mental status Assessment & Plan: Improved. PT eval ordered, tcu vs home with pt services Status: Resolved
[2016-09-21] MEDS ORDERED: Barium Sulfate Susp 0.1% w/v, 0.1% w/w 450 mL Bottle PO ONE (13:49)
--- NOTE | 2016-09-21 16:34 | RAD ---
PROCEDURE: Modified barium swallow with video technique HISTORY: dysphagia COMPARISON: None TECHNIQUE: Total fluoroscopic time (continuous mode) utilized during the procedure: 160.7 seconds FINDINGS: Failure to initiate swallowing. Failure to convert from the oral to the pharyngeal phase ease without extensive coaching. No evidence of aspiration or penetration. IMPRESSION: No evidence for aspiration/penetration.
--- NOTE | 2016-09-21 18:14 | CP.PCM.PN ---
Subjective - Date & Time of Evaluation Date of Evaluation: 09/21/16 Time of Evaluation: 18:12 - Subjective Subjective: Patient currently appears to be unable to initiate feeding process Objective - Vital Signs/Intake and Output Vital Signs (last 24 hours): Temp Pulse Resp BP Pulse Ox 98.2 F 75 20 112/69 97 09/21/16 15:52 09/21/16 15:52 09/21/16 15:52 09/21/16 15:52 09/21/16 15:52 Intake and Output: 09/21/16 09/21/16 06:59 18:59 Intake Total 1200 Balance 1200 - Medications Medications: Current Medications Docusate Sodium (Colace) 100 mg PO BID PRN PRN Reason: constipation Enoxaparin Sodium (Lovenox) 40 mg SC DAILY [facility] PRN Reason: Protocol Last Admin: 09/21/16 09:41 Dose: 40 mg Phenobarbital 30 mg/ Sodium (Chloride) 50.4615 mls @ 100.923 mls/hr IV Q8 [facility] Last Admin: 09/21/16 16:56 Dose: 100.923 mls/hr Dextrose/Sodium Chloride (Dextrose 5%/0.45% Ns 1000 Ml) 1,000 mls @ 100 mls/hr IV .Q10H [facility] Stop: 09/21/16 23:48 Last Admin: 09/21/16 16:50 Dose: 100 mls/hr Lactulose (Enulose) 10 gm PO DAILY PRN PRN Reason: Constipation Pantoprazole Sodium (Protonix Inj) 40 mg IVP DAILY [facility] Last Admin: 09/21/16 09:41 Dose: 40 mg Phenytoin (Dilantin) 100 mg IVPB Q8 [facility] Last Admin: 09/21/16 16:55 Dose: 100 mg - Labs Labs: 09/20/16 06:30 09/20/16 06:30 PT 11.5 Seconds (9.8-13.1) 09/18/16 09:50 INR 1.0 (0.9-1.2) 09/18/16 09:50 APTT 28.4 Seconds (25.6-37.1) 09/18/16 09:50 - Head Exam Head Exam: ATRAUMATIC - Eye Exam Eye Exam: Normal appearance - ENT Exam ENT Exam: Mucous Membranes Moist - Respiratory Exam Respiratory Exam: Clear to Ausculation Bilateral - Cardiovascular Exam Cardiovascular Exam: REGULAR RHYTHM - GI/Abdominal Exam GI & Abdominal Exam: Normal Bowel Sounds Assessment and Plan (1) Dysphagia Assessment & Plan: Patient currently not eating. Possibility of PEG raised with patient and her . Awaiting ENT. Status: Acute
[2016-09-22] MEDS: Phenytoin 100 mg/2 ml Inj IVPB SCH ×2 (00:41→01:45)
[2016-09-22] MEDS: SODIUM CHLORIDE 0.9% IV SCH (01:45)
[2016-09-22] MEDS: PHENOBARBITAL IV SCH (01:45)
[2016-09-22] MEDS: Phenytoin 100 mg/4 ml Oral Susp UD PO SCH ×3 (02:05→17:50)
[2016-09-22] MEDS: PHENOBARBITAL 20 MG/5 ML PO SCH ×3 (02:09→17:50)
--- NOTE | 2016-09-22 02:31 | CP.PCM.PCO ---
Physician Communication Note - Physician Communication Note Physician Communication Note: IV infiltrated, unable to find access. Meds switched to PO. Consider PICC.
--- NOTE | 2016-09-22 10:12 | RAD ---
PROCEDURE: Radiographs of both shoulders [facility]ISTORY[facility] COMPARISON: No prior. FINDINGS: BONES: Right shoulder: Evaluation limited due to lack of external rotation view. No gross abnormality. Left shoulder: Normal. No fracture. JOINTS: Right shoulder: Evaluation limited. Left shoulder: Mild glenohumeral osteoarthritis. Acromioclavicular articulation preserved. SOFT TISSUES: Right shoulder: Right central venous infusion port overlying chest wall Right shoulder: Grossly unremarkable. OTHER FINDINGS: None. IMPRESSION: Left mild glenohumeral osteoarthritis. Limited evaluation of right shoulder.
[2016-09-22] MEDS ORDERED: Benzocaine/Menthol (Cepacol) Lozenge PO PRN (10:54)
--- NOTE | 2016-09-22 13:22 | CP.PCM.PN ---
<Franklyn Alicea - Last Filed: 09/22/16 13:19> Subjective - Date & Time of Evaluation Date of Evaluation: 09/22/16 Time of Evaluation: 07:19 - Subjective Subjective: Patient seen and examined at bedside with attending. No acute events overnight besides poor IV access. No complaints of pain. Barium swallow yesterday, started on puree diet last night. BM normal. Afebrile. No chills. Seen by GI. Objective - Vital Signs/Intake and Output Vital Signs (last 24 hours): Temp Pulse Resp BP Pulse Ox 98.8 F 84 20 125/75 97 09/22/16 08:00 09/22/16 09:00 09/22/16 08:00 09/22/16 08:00 09/22/16 08:00 Intake and Output: 09/22/16 09/22/16 06:59 18:59 Intake Total 530 Balance 530 - Medications Medications: Current Medications Benzocaine/Menthol (Cepacol Sore Throat) 1 jolene PO Q3 PRN PRN Reason: Sore Throat Last Admin: 09/22/16 12:32 Dose: 1 jolene Docusate Sodium (Colace) 100 mg PO BID PRN PRN Reason: constipation Lactulose (Enulose) 10 gm PO DAILY PRN PRN Reason: Constipation Pantoprazole Sodium (Protonix Inj) 40 mg IVP DAILY [facility] Last Admin: 09/22/16 09:59 Dose: Not Given Phenobarbital (Phenobarbital Oral Elixir) 30 mg PO Q8H [facility] Last Admin: 09/22/16 10:46 Dose: 30 mg Phenytoin (Dilantin) 100 mg PO Q8H [facility] Last Admin: 09/22/16 09:51 Dose: 100 mg - Labs Labs: 09/20/16 06:30 09/20/16 06:30 PT 11.5 Seconds (9.8-13.1) 09/18/16 09:50 INR 1.0 (0.9-1.2) 09/18/16 09:50 APTT 28.4 Seconds (25.6-37.1) 09/18/16 09:50 - Constitutional Appears: Well, Non-toxic, No Acute Distress - Head Exam Head Exam: ATRAUMATIC, NORMAL INSPECTION, NORMOCEPHALIC - Eye Exam Eye Exam: Normal appearance - Neck Exam Neck Exam: Normal Inspection - Respiratory Exam Respiratory Exam: Clear to Ausculation Bilateral, NORMAL BREATHING PATTERN - Cardiovascular Exam Cardiovascular Exam: REGULAR RHYTHM, +S1, +S2. absent: Murmur - GI/Abdominal Exam GI & Abdominal Exam: Soft, Normal Bowel Sounds. absent: Tenderness - Extremities Exam Extremities Exam: Normal Inspection Additional comments: rue contracted - Neurological Exam Neurological Exam: Alert, Awake - Psychiatric Exam Psychiatric exam: Normal Affect, Normal Mood - Skin Skin Exam: Dry, Intact, Normal Color, Warm Assessment and Plan (1) Dysphagia Assessment & Plan: Barium swallow reviewed Started on puree diet last night, will continue to monitor Aspiration precautions Continue to monitor GI on board, appreciate recommendations possible 2ndary to previous CVA. Neuro input appreciated Status: Acute (2) History of CVA with residual deficit Assessment & Plan: Neuro consulted, appreciate recommendations Possibly dysphagia due to residual effects Status: Chronic (4) Altered mental status Assessment & Plan: Improved. PT eval ordered, tcu vs home with pt services Status: Resolved (5) Abdominal pain Status: Resolved <Julio Ferguson - Last Filed: 09/27/16 17:32> Objective - Vital Signs/Intake and Output Vital Signs (last 24 hours): Temp Pulse Resp BP Pulse Ox 98.3 F 89 18 104/72 98 09/26/16 16:18 09/26/16 16:18 09/26/16 16:18 09/26/16 16:18 09/26/16 16:18 - Labs Labs: 09/26/16 07:15 09/26/16 07:15 PT 11.5 Seconds (9.8-13.1) 09/18/16 09:50 INR 1.0 (0.9-1.2) 09/18/16 09:50 APTT 28.4 Seconds (25.6-37.1) 09/18/16 09:50 Assessment and Plan - Assessment and Plan (Free Text) Assessment: Patient was personally seen and examined by me in rounds with residents. Available labs and diagnostic data reviewed. Case, Patient's condition and management plan discussed with residents in rounds. Agree with resident's documentation. Plan: As ordered. Julio Ferguson MD
[2016-09-22 19:43] LABS: MEAN CELL VOLUME 86.4 fl (81.0-99.0); MEAN CORPUSCULAR HEMOGLOBIN 28.6 pg (27.0-31.0); MEAN CORPUSCULAR HGB CONC 33.1 g/dL (33.0-37.0); RED CELL DISTRIBUTION WIDTH 13.6 % (11.5-14.5); WHITE BLOOD COUNT 10.9 K/uL (4.8-10.8)
[2016-09-23] MEDS: Phenytoin 100 mg/4 ml Oral Susp UD PO SCH ×3 (01:35→18:37)
[2016-09-23] MEDS: PHENOBARBITAL 20 MG/5 ML PO SCH ×3 (01:35→18:37)
--- NOTE | 2016-09-23 02:13 | OP ---
PROCEDURE DATE: 09/22/2016 PREOPERATIVE DIAGNOSIS: Dysphagia. POSTOPERATIVE DIAGNOSIS: Dysphagia. PROCEDURE: Flexible laryngoscopy. SIGNIFICANT FINDINGS: Supraglottic erythema. DESCRIPTION OF PROCEDURE: The patient was placed in a seated position. The nose was decongested usi ng Afrin nasal spray. The flexible laryngoscope was inserted in the nasal cavity, passed through the nasopharynx, oropharynx, and hypopharynx. The pharyngeal briones, base of tongue, vallecula, epiglott is, AE folds, false cords, true cords, arytenoids, and piriform sinuses were brought into view. Some supraglottic erythema was noted. No masses or lesions were noted. The scope was removed. The isabella ent tolerated the procedure well. The patient assessed as having supraglottitis infection, although I think some of the pain may be coming from discoordinated muscle movements from the stroke. MY RECOMMENDATIONS: The patient be placed on an antibiotic and some muscle relaxants. Follow up as an outpatient. I relayed this to Dr. Ferguson, who is taking care of the patient. Seb Morillo MD cc: [phone] TT: 09/23/2016 02:13:13 nj
[2016-09-23 06:41] LABS: HEMATOCRIT 39.8 % (34.0-47.0); MEAN CELL VOLUME 86.5 fl (81.0-99.0); MEAN CORPUSCULAR HEMOGLOBIN 28.6 pg (27.0-31.0); MEAN CORPUSCULAR HGB CONC 33.1 g/dL (33.0-37.0); RED CELL DISTRIBUTION WIDTH 14.1 % (11.5-14.5)
--- NOTE | 2016-09-23 08:38 | CP.PCM.PN ---
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 Was straining just before bleeding episodes. Last bloody stool about 1:30 AM Objective - Vital Signs/Intake and Output Vital Signs (last 24 hours): Temp Pulse Resp BP Pulse Ox 98.4 F 87 20 100/64 96 09/23/16 08:04 09/23/16 08:04 09/23/16 08:04 09/23/16 08:04 09/23/16 08:04 Intake and Output: 09/23/16 09/23/16 06:59 18:59 Intake Total 200 Balance 200 - Medications Medications: Current Medications Amoxicillin/Clavulanate Potassium (Augmentin 875 Mg-125 Mg Tab) 1 tab PO Q12 [facility] Baclofen (Lioresal) 10 mg PO TID [facility] Benzocaine/Menthol (Cepacol Sore Throat) 1 jolene PO Q3 PRN PRN Reason: Sore Throat Last Admin: 09/22/16 12:32 Dose: 1 jolene Docusate Sodium (Colace) 100 mg PO BID PRN PRN Reason: constipation Famotidine (Pepcid) 20 mg PO BID [facility] Last Admin: 09/22/16 17:59 Dose: Not Given Lactulose (Enulose) 10 gm PO DAILY PRN PRN Reason: Constipation Phenobarbital (Phenobarbital Oral Elixir) 30 mg PO Q8H [facility] Last Admin: 09/23/16 01:35 Dose: 30 mg Phenytoin (Dilantin) 100 mg PO Q8H [facility] Last Admin: 09/23/16 01:35 Dose: 100 mg - Labs Labs: 09/23/16 06:00 09/20/16 06:30 PT 11.5 Seconds (9.8-13.1) 09/18/16 09:50 INR 1.0 (0.9-1.2) 09/18/16 09:50 APTT 28.4 Seconds (25.6-37.1) 09/18/16 09:50 - Head Exam Head Exam: ATRAUMATIC - Eye Exam Eye Exam: Normal appearance - ENT Exam ENT Exam: Mucous Membranes Moist - Respiratory Exam Respiratory Exam: Clear to Ausculation Bilateral - Cardiovascular Exam Cardiovascular Exam: REGULAR RHYTHM, +S1, +S2 - GI/Abdominal Exam GI & Abdominal Exam: Soft, Tenderness, Normal Bowel Sounds Additional comments: LLQ Assessment and Plan (1) Dysphagia Assessment & Plan: Patient currently on puree diet. If patient unable to ingest adequate calories PEG would be reasonable Status: Acute (2) GI bleed Assessment & Plan: Bleeding does not appear to be hemodynamically significant. Will do elective colonoscopy on Monday. Status: Acute
--- NOTE | 2016-09-23 09:45 | CP.PCM.PN ---
<Franklyn Alicea - Last Filed: 09/23/16 09:42> Subjective - Date & Time of Evaluation Date of Evaluation: 09/23/16 Time of Evaluation: 07:20 - Subjective Subjective: Patient seen and examined at bedside with attending. Episodes of gross rectal bleeding yesterday and early this morning. No complaints of pain. Seen by ENT yesterday, laryngoscopy completed. GI saw patient this AM. Afebrile. No chills. Patient has poor appetite. Objective - Vital Signs/Intake and Output Vital Signs (last 24 hours): Temp Pulse Resp BP Pulse Ox 98.4 F 87 20 100/64 96 09/23/16 08:04 09/23/16 08:04 09/23/16 08:04 09/23/16 08:04 09/23/16 08:04 Intake and Output: 09/23/16 09/23/16 06:59 18:59 Intake Total 200 Balance 200 - Medications Medications: Current Medications Amoxicillin/Clavulanate Potassium (Augmentin 875 Mg-125 Mg Tab) 1 tab PO Q12 [facility] Baclofen (Lioresal) 10 mg PO TID [facility] Benzocaine/Menthol (Cepacol Sore Throat) 1 jolene PO Q3 PRN PRN Reason: Sore Throat Last Admin: 09/22/16 12:32 Dose: 1 jolene Docusate Sodium (Colace) 100 mg PO BID PRN PRN Reason: constipation Famotidine (Pepcid) 20 mg PO BID [facility] Last Admin: 09/22/16 17:59 Dose: Not Given Lactulose (Enulose) 10 gm PO DAILY PRN PRN Reason: Constipation Phenobarbital (Phenobarbital Oral Elixir) 30 mg PO Q8H [facility] Last Admin: 09/23/16 01:35 Dose: 30 mg Phenytoin (Dilantin) 100 mg PO Q8H [facility] Last Admin: 09/23/16 01:35 Dose: 100 mg - Labs Labs: 09/23/16 06:00 09/20/16 06:30 PT 11.5 Seconds (9.8-13.1) 09/18/16 09:50 INR 1.0 (0.9-1.2) 09/18/16 09:50 APTT 28.4 Seconds (25.6-37.1) 09/18/16 09:50 - Constitutional Appears: Well, Non-toxic, No Acute Distress - Head Exam Head Exam: ATRAUMATIC, NORMAL INSPECTION, NORMOCEPHALIC - Eye Exam Eye Exam: Normal appearance - Respiratory Exam Respiratory Exam: Clear to Ausculation Bilateral, NORMAL BREATHING PATTERN - Cardiovascular Exam Cardiovascular Exam: REGULAR RHYTHM, +S1, +S2. absent: Murmur - GI/Abdominal Exam GI & Abdominal Exam: Soft, Normal Bowel Sounds. absent: Tenderness - Extremities Exam Extremities Exam: Normal Inspection Additional comments: rue contracted - Neurological Exam Neurological Exam: Alert, Awake - Psychiatric Exam Psychiatric exam: Normal Affect, Normal Mood - Skin Skin Exam: Dry, Intact, Normal Color, Warm Assessment and Plan (1) Dysphagia Assessment & Plan: ENT consulted, appreciate recommendations Started on abx today C/w puree diet If patient continues to have poor caloric intake, PEG possibility Aspiration precautions Continue to monitor GI on board, appreciate recommendations Neuro input appreciated Status: Acute (2) History of CVA with residual deficit Assessment & Plan: Neuro consulted, appreciate input Possibly dysphagia due to residual effects PT - tcu vs home with pt services Status: Chronic (3) GI bleed Assessment & Plan: brbpr x 2 in past 24 hrs GI on board, appreciate input Hemodynamically stable Hgb stable No pain Colonscopy Monday? Status: Acute <Ferguson,Julio K - Last Filed: 09/27/16 17:33> Objective - Vital Signs/Intake and Output Vital Signs (last 24 hours): Temp Pulse Resp BP Pulse Ox 98.3 F 89 18 104/72 98 09/26/16 16:18 09/26/16 16:18 09/26/16 16:18 09/26/16 16:18 09/26/16 16:18 - Labs Labs: 09/26/16 07:15 09/26/16 07:15 PT 11.5 Seconds (9.8-13.1) 09/18/16 09:50 INR 1.0 (0.9-1.2) 09/18/16 09:50 APTT 28.4 Seconds (25.6-37.1) 09/18/16 09:50 Assessment and Plan - Assessment and Plan (Free Text) Assessment: Patient was personally seen and examined by me in rounds with residents. Available labs and diagnostic data reviewed. Case, Patient's condition and management plan discussed with residents in rounds. Agree with resident's documentation. Plan: As ordered. Julio Ferguson MD
[2016-09-23] MEDS: Amoxicillin-Clav 875-125 mg Tab PO SCH ×2 (10:21→21:34)
[2016-09-24] MEDS ORDERED: DiphenhydrAMINE 12.5 mg/5 ml LIQ UD (5 ml) PO ONE (03:39)
[2016-09-24] MEDS: Phenytoin 100 mg/4 ml Oral Susp UD PO SCH ×3 (03:58→16:46)
[2016-09-24] MEDS: PHENOBARBITAL 20 MG/5 ML PO SCH ×3 (04:32→16:45)
[2016-09-24 07:18] LABS: HEMATOCRIT 37.9 % (34.0-47.0); MEAN CORPUSCULAR HEMOGLOBIN 28.9 pg (27.0-31.0); MEAN CORPUSCULAR HGB CONC 33.6 g/dL (33.0-37.0); WHITE BLOOD COUNT 7.4 K/uL (4.8-10.8)
[2016-09-24 07:39] LABS: ALB/GLOB RATIO 1.1 (1.0-2.1); ALKALINE PHOSPHATASE 157 U/L (38-126); ALT/SGPT 33 U/L (9-52); AST/SGOT 31 U/L (14-36); BILIRUBIN,TOTAL 0.2 mg/dl (0.2-1.3); BLOOD UREA NITROGEN 4 mg/dl (7-17); CALCIUM 9.4 mg/dL (8.4-10.2); CARBON DIOXIDE 27 mmol/L (22-30); CHLORIDE 104 mmol/L (98-107); GFR AFRICAN-AMERICAN > 60; GLUCOSE,RANDOM 95 mg/dL (65-105); POTASSIUM 3.4 MMOL/L (3.6-5.0); SODIUM 141 mmol/l (132-148); TOTAL PROTEIN 7.5 G/DL (6.3-8.2)
--- NOTE | 2016-09-24 08:02 | PN ---
DATE: 09/24/2016 The patient seen and examined. Interim events noted. Consults noted and appreciated. Gastroenterol ogy intervention noted and appreciated. The patient is for possible endoscopy on Monday. The patien t feels okay. No active bleeding. No chest pain, no shortness of breath. Able to tolerate normal f ood. PHYSICAL EXAMINATION: GENERAL: The patient is in no acute distress. VITAL SIGNS: Stable. HEART: S1, S2 normal, regular. LUNGS: Good bilateral air entry. ABDOMEN: Soft, nontender. EXTREMITIES: No edema, no calf swelling, no tenderness, no acute ischemia. CENTRAL NERVOUS SYSTEM: Essentially unchanged. DIAGNOSTIC DATA: Available diagnostic data reviewed. Hemoglobin is stable at 13. Overall, the patient is clinically stable. The patient is on Lovenox at home and also has bleeding w hich complicates the use of Lovenox. The patient is tentatively scheduled for endoscopy as Monday. PLAN: As ordered. Case and plan discussed with patient. Julio Ferguson MD cc: [phone] TT: 09/24/2016 08:02:12 Confirmation # [id number] Dictation # [id number] candelaria
[2016-09-24] MEDS: Amoxicillin-Clav 875-125 mg Tab PO SCH ×2 (09:15→20:56)
[2016-09-24] MEDS ORDERED: Potassium Chloride 20 mEq ER Tab PO ONE (09:55)
--- NOTE | 2016-09-25 01:24 | CP.PCM.PN ---
Subjective - Date & Time of Evaluation Date of Evaluation: 09/24/16 Time of Evaluation: 23:30 - Subjective Subjective: Patient with epigastric pain and difficulty swallowing. Rectal bleeding has stopped Objective - Vital Signs/Intake and Output Vital Signs (last 24 hours): Temp Pulse Resp BP Pulse Ox 97.7 F 80 18 104/71 98 09/25/16 00:18 09/25/16 00:18 09/25/16 00:18 09/25/16 00:18 09/25/16 00:18 Intake and Output: 09/24/16 09/25/16 18:59 06:59 Intake Total 200 Balance 200 - Medications Medications: Current Medications Amoxicillin/Clavulanate Potassium (Augmentin 875 Mg-125 Mg Tab) 1 tab PO Q12 [facility] Last Admin: 09/24/16 20:56 Dose: 1 tab Baclofen (Lioresal) 10 mg PO Q8@0700,1500,2300 [facility] Last Admin: 09/25/16 00:32 Dose: 10 mg Benzocaine/Menthol (Cepacol Sore Throat) 1 jolene PO Q3 PRN PRN Reason: Sore Throat Last Admin: 09/22/16 12:32 Dose: 1 jolene Docusate Sodium (Colace) 100 mg PO BID PRN PRN Reason: constipation Famotidine (Pepcid) 20 mg PO BID [facility] Last Admin: 09/24/16 16:17 Dose: 20 mg Lactulose (Enulose) 10 gm PO DAILY PRN PRN Reason: Constipation Phenobarbital (Phenobarbital Oral Elixir) 30 mg PO Q8H [facility] Last Admin: 09/24/16 16:45 Dose: 30 mg Phenytoin (Dilantin) 100 mg PO Q8H [facility] Last Admin: 09/24/16 16:46 Dose: 100 mg - Labs Labs: 09/24/16 06:30 09/24/16 06:30 PT 11.5 Seconds (9.8-13.1) 09/18/16 09:50 INR 1.0 (0.9-1.2) 09/18/16 09:50 APTT 28.4 Seconds (25.6-37.1) 09/18/16 09:50 - Head Exam Head Exam: ATRAUMATIC - Eye Exam Eye Exam: Normal appearance - ENT Exam ENT Exam: Mucous Membranes Moist - Neck Exam Neck Exam: Normal Inspection - Respiratory Exam Respiratory Exam: NORMAL BREATHING PATTERN - Cardiovascular Exam Cardiovascular Exam: REGULAR RHYTHM - GI/Abdominal Exam GI & Abdominal Exam: Soft, Tenderness, Normal Bowel Sounds Additional comments: epigastrum - Rectal Exam Rectal Exam: Black Stool, NORMAL INSPECTION Assessment and Plan (1) Dysphagia Assessment & Plan: Will do upper endoscopy Monday to r/o esophagitis or stricture. Status: Acute (2) GI bleed Assessment & Plan: Due to need for anticoagulation will n do coloonoscopy to look for underlying etiology Status: Acute
[2016-09-25] MEDS: PHENOBARBITAL 20 MG/5 ML PO SCH ×3 (01:41→17:55)
[2016-09-25] MEDS: Phenytoin 100 mg/4 ml Oral Susp UD PO SCH ×3 (01:42→17:56)
--- NOTE | 2016-09-25 09:08 | PN ---
DATE: 09/25/2016 The patient seen and examined. Interim events noted. Consults noted, appreciated. followup a nd intervention noted and appreciated. The patient remains in progressive care unit on telemetry mon itoring. The patient feels better, was able to eat more. Feels better, more energetic. No chest pa in, no shortness of breath. PHYSICAL EXAMINATION: GENERAL: The patient is in no acute distress. VITAL SIGNS: Stable. HEART: S1, S2 normal, regular. LUNGS: Good bilateral air entry. ABDOMEN: Soft, nontender. EXTREMITIES: No edema, no calf swelling, no tenderness, no acute ischemia. CENTRAL NERVOUS SYSTEM: Essentially unchanged. DIAGNOSTIC DATA: Available reviewed. Telemetry monitoring does not reveal significant arrhythmia. Overall, patient's general medical condition is stable and improving. PLAN: As ordered. The patient is for endoscopy tomorrow. Case and plan discussed with patient. Julio Ferguson MD cc: [phone] TT: 09/25/2016 09:07:24 Confirmation # [id number] Dictation # [id number] en
[2016-09-25] MEDS: Amoxicillin-Clav 875-125 mg Tab PO SCH ×2 (09:18→21:26)
[2016-09-25] MEDS ORDERED: Magnesium Citrate Oral SOL (300 ml) PO ONE ×2 (13:45→14:22)
[2016-09-25] MEDS ORDERED: Peg-Electrolyte Oral Soln 4L (Golytely) PO ONE (16:11)
--- NOTE | 2016-09-25 17:48 | CP.PCM.PN ---
Subjective - Date & Time of Evaluation Date of Evaluation: 09/25/16 Time of Evaluation: 17:45 - Subjective Subjective: No more bleeding noted. Unable to tolerate Magcitrate due to allergy to lemon which is in the flavoring Objective - Vital Signs/Intake and Output Vital Signs (last 24 hours): Temp Pulse Resp BP Pulse Ox 98.3 F 77 20 112/72 95 09/25/16 15:30 09/25/16 15:30 09/25/16 15:30 09/25/16 15:30 09/25/16 15:30 - Medications Medications: Current Medications Amoxicillin/Clavulanate Potassium (Augmentin 875 Mg-125 Mg Tab) 1 tab PO Q12 [facility] Last Admin: 09/25/16 09:18 Dose: 1 tab Baclofen (Lioresal) 10 mg PO Q8@0700,1500,2300 [facility] Last Admin: 09/25/16 16:29 Dose: 10 mg Benzocaine/Menthol (Cepacol Sore Throat) 1 jolene PO Q3 PRN PRN Reason: Sore Throat Last Admin: 09/22/16 12:32 Dose: 1 jolene Docusate Sodium (Colace) 100 mg PO BID PRN PRN Reason: constipation Famotidine (Pepcid) 20 mg PO BID [facility] Last Admin: 09/25/16 09:18 Dose: 20 mg Lactulose (Enulose) 10 gm PO DAILY PRN PRN Reason: Constipation Phenobarbital (Phenobarbital Oral Elixir) 30 mg PO Q8H [facility] Last Admin: 09/25/16 09:22 Dose: 30 mg Phenytoin (Dilantin) 100 mg PO Q8H [facility] Last Admin: 09/25/16 09:18 Dose: 100 mg - Labs Labs: 09/24/16 06:30 09/24/16 06:30 PT 11.5 Seconds (9.8-13.1) 09/18/16 09:50 INR 1.0 (0.9-1.2) 09/18/16 09:50 APTT 28.4 Seconds (25.6-37.1) 09/18/16 09:50 - Head Exam Head Exam: NORMAL INSPECTION - ENT Exam ENT Exam: Mucous Membranes Moist - Neck Exam Neck Exam: Full ROM - Respiratory Exam Respiratory Exam: Clear to Ausculation Bilateral - GI/Abdominal Exam GI & Abdominal Exam: Soft, Normal Bowel Sounds. absent: Tenderness Assessment and Plan (1) Dysphagia Status: Acute (2) GI bleed Assessment & Plan: For upper and lower endoscopy. No evidence of ongoing bleeding. Status: Acute
[2016-09-26] MEDS: Phenytoin 100 mg/4 ml Oral Susp UD PO SCH ×3 (03:59→11:16)
[2016-09-26] MEDS: PHENOBARBITAL 20 MG/5 ML PO SCH (04:00)
[2016-09-26 07:35] LABS: ALB/GLOB RATIO 1.1 (1.0-2.1); ALKALINE PHOSPHATASE 162 U/L (38-126); ALT/SGPT 41 U/L (9-52); AST/SGOT 33 U/L (14-36); BILIRUBIN,TOTAL 0.3 mg/dl (0.2-1.3); CALCIUM 9.5 mg/dL (8.4-10.2); CARBON DIOXIDE 26 mmol/L (22-30); CHLORIDE 103 mmol/L (98-107); GFR AFRICAN-AMERICAN > 60; GLUCOSE,RANDOM 87 mg/dL (65-105); SODIUM 139 mmol/l (132-148); TOTAL PROTEIN 7.9 G/DL (6.3-8.2)
[2016-09-26 07:37] LABS: HEMATOCRIT 40.7 % (34.0-47.0); MEAN CELL VOLUME 87.2 fl (81.0-99.0); MEAN CORPUSCULAR HEMOGLOBIN 28.6 pg (27.0-31.0); MEAN CORPUSCULAR HGB CONC 32.8 g/dL (33.0-37.0); RED CELL DISTRIBUTION WIDTH 14.2 % (11.5-14.5)
[2016-09-26 07:47] LABS: BLOOD UREA NITROGEN 2 mg/dl (7-17)
[2016-09-26] MEDS: Amoxicillin-Clav 875-125 mg Tab PO SCH (08:53)
--- NOTE | 2016-09-26 10:35 | PN ---
DATE: 09/26/2016 The patient is seen and examined. Interim events noted. Consults noted, appreciated. Gastroenterol ogy followup and intervention noted and appreciated. The patient remains in progressive care unit on telemetry monitoring. Denies any specific complaint. No active bleeding. PHYSICAL EXAMINATION: GENERAL: The patient is in no acute distress. VITAL SIGNS: Stable. HEART: S1, S2 normal, regular. LUNGS: Good bilateral air entry. ABDOMEN: Soft, nontender. EXTREMITIES: No edema, no calf swelling, no tenderness, no acute ischemia. CENTRAL NERVOUS SYSTEM: Essentially unchanged from previous . DIAGNOSTIC DATA: Available reviewed. Telemetry monitoring does not reveal significant arrhythmias. Overall, patient's general medical condition is stable. The patient is for possible endoscopy. PLAN: As ordered. Case and plan discussed with patient. Julio Ferguson MD cc: [phone] TT: 09/26/2016 10:34:19 Confirmation # [id number] Dictation # [id number] en
[2016-09-26] MEDS ORDERED: Enoxaparin 40 mg Syringe SC SCH (11:00)
[2016-09-26] MEDS ORDERED: PHENOBARBITAL 20 MG/5 ML PO SCH (11:30)
[2016-09-26 16:19] VITALS: BP 104/72; PULSE 89; RESP 18; TEMP 98.3; O2SAT 98
== END 2016-09-26 16:00 | disposition home health service (06) | DRG 463 ==
LOC: H.ER 09:30 → H.ERHOLD 15:13 → H.TEL 16:12
PROVIDERS: ADMIT Internal Medicine; ATTEND Internal Medicine
PROC: 0CJS8ZZ Inspection of Larynx, Via Natural or Artificial Opening Endoscopic (ICD-10-PCS; principal; 2016-09-22)
DX: R41.82 Altered mental status, unspecified (principal); K62.5 Hemorrhage of anus and rectum; I69.351 Hemiplegia and hemiparesis following cerebral infarction affecting right dominant side; I10 Essential (primary) hypertension; I69.391 Dysphagia following cerebral infarction; R13.19 Other dysphagia; G89.29 Other chronic pain; M54.17 Radiculopathy, lumbosacral region; G40.909 Epilepsy, unspecified, not intractable, without status epilepticus; I25.10 Atherosclerotic heart disease of native coronary artery without angina pectoris; J45.909 Unspecified asthma, uncomplicated; E78.5 Hyperlipidemia, unspecified; M54.5 Low back pain; F41.9 Anxiety disorder, unspecified; Z79.891 Long term (current) use of opiate analgesic; Z88.6 Allergy status to analgesic agent; Z88.1 Allergy status to other antibiotic agents; Z87.891 Personal history of nicotine dependence; Z87.01 Personal history of pneumonia (recurrent)

== ENCOUNTER 2016-09-29 10:26 | Day surgery (SDC) | payer MEDICAID ==
[2016-09-29 11:01] VITALS: BMI 27.8
[2016-09-29] MEDS ORDERED: Iodixanol 320 MG/ML 100 ML BOTTLE IV ONE (13:54)
--- NOTE | 2016-09-29 14:12 | CP.SDSHP ---
Same Day Surgery H & P - History Proposed Procedure: Port evaluation Pre-Op Diagnosis: Malfunctioning port - Allergies Allergies: Allergies aloe Allergy (Intermediate, Verified 09/29/16 11:02) RASH [place] And Derivatives Allergy (Intermediate, Verified 09/29/16 11:02) RASH metronidazole Allergy (Intermediate, Verified 09/29/16 11:02) RASH aspirin Allergy (Verified 09/29/16 11:02) ITCHING clopidogrel bisulfate [From Plavix] Allergy (Verified 09/29/16 11:02) ITCHING hydromorphone Allergy (Verified 09/29/16 11:02) VOMITING ibuprofen Allergy (Verified 09/29/16 11:02) STOMACH BLEEDING ketorolac tromethamine [From Toradol] Allergy (Verified 09/29/16 11:02) ITCHING lidocaine Allergy (Verified 09/29/16 11:02) RASH midazolam HCl [From Versed] Allergy (Verified 09/29/16 11:02) NAUSEA vancomycin Allergy (Verified 09/29/16 11:02) ITCHING morphine Adverse Reaction (Mild, Verified 09/29/16 11:02) ITCHING ciprofloxacin [From Cipro] Adverse Reaction (Verified 09/29/16 11:02) SWELLING ciprofloxacin HCl [From Cipro] Adverse Reaction (Verified 09/29/16 11:02) SWELLING - Impression Impression: Pt with malfunctioning port referred for port evaluation. Informed consent obtained. Pt. Evaluated Today:Candidate for Anesthesia & Procedure: No Short Stay Discharge - Short Stay Discharge Admitting Diagnosis/Reason for Visit: MALFUNCTIONING LIFEPORT Referrals: Daisy Oviedo MD [Primary Care Provider] - Progress Note/Discharge Note with Instructions: S/P port evaluation.
--- NOTE | 2016-09-29 14:15 | PCM.SURG1 ---
Surgeon's Initial Post Op Note - Surgeon's Notes Surgeon: Eric Barraza MD Ruffling Machine Operator: NONE Type of Anesthesia: None Pre-Operative Diagnosis: No blood return from port Operative Findings: Port: Right subclavian vein port. The port is in place. Catheter is intact. Port is patent. There is significant fibrin sheet at tip of port catheter preventing aspiration. Post-Operative Diagnosis: No blood return from port Operation Performed: Port evaluation Specimen/Specimens Removed: NONE Estimated Blood Loss: EBL {In ML}: 0 Blood Products Given: N/A Drains Used: No Drains Post-Op Condition: Fair Date of Surgery/Procedure: 09/29/16 Time of Surgery/Procedure: 14:10
[2016-09-29 15:02] VITALS: BP 109/72; PULSE 76; RESP 20; TEMP 97.7; O2SAT 97
--- NOTE | 2016-10-05 08:26 | VASCULAR ---
PROCEDURE: Date of study: 09/29/2016 Procedure: 1. Right subclavian port evaluation Medications: Total Fluoro time: 21 seconds Radiation: 2.5 MGy EBL: 0 HISTORY: Poor blood return from port TECHNIQUE: Following formed consent the procedure time-out, the patient placed supine on interventional table and the right port was prepped and draped in the usual sterile fashion. A fluoroscopic image showed a right subclavian vein port catheter with tip of the catheter in the SVC. The port was accessed and portogram was performed. FINDINGS: Port is intact. Fibrin sheet tip of catheter. Port was flushed and locked with heparin. Impression Port is intact. Significant fibrin sheet at end of port catheter which is limiting blood return.
== END 2016-09-29 15:30 | disposition home or self-care (01) ==
LOC: H.OPSURG 10:26
PROVIDERS: ATTEND Surgery
DX: T82.898A Other specified complication of vascular prosthetic devices, implants and grafts, initial encounter (principal)

== ENCOUNTER 2017-02-15 06:11 | Day surgery (SDC) | payer MEDICAID ==
[2017-02-14 11:57] VITALS: BMI 29.2
[2017-02-15 06:40] VITALS: RESP 20
[2017-02-15] MEDS ORDERED: Succinylcholine 200 mg/10 ml Inj IV ONE (07:17)
[2017-02-15] MEDS ORDERED: Propofol 10 mg/ml Inj (20 ML) ONE ×2 (07:17→08:37)
[2017-02-15] MEDS ORDERED: ePHEDrine 50 mg/ml Inj ONE (07:17)
[2017-02-15] MEDS ORDERED: Lidocaine 1% Inj (20ml) ONE (07:47)
[2017-02-15] MEDS ORDERED: ceFAZolin IV 1 gm in Dextrose 1 GM/50 ML BAG IVPB ONE ×2 (07:47→08:51)
[2017-02-15] MEDS ORDERED: Lactated Ringer's 1,000 ML IV ONE ×2 (08:05→09:53)
[2017-02-15] MEDS ORDERED: Lidocaine 1% Inj (20ml) IJ ONE (08:35)
[2017-02-15] MEDS ORDERED: Dexamethasone 4 mg/1 ml ONE (08:51)
[2017-02-15] MEDS ORDERED: Lactated Ringer's 1,000 ML IV SCH (10:00)
--- NOTE | 2017-02-15 10:18 | CP.SDSHP ---
Same Day Surgery H & P - History Proposed Procedure: replacement/removal lifeport Pre-Op Diagnosis: no venous access - Previous Medical/Surgical History Cardiac: Previous [place] Pulmonary: Asthma Neuro: Seizure Disorder - Allergies Allergies: Allergies aloe Allergy (Intermediate, Verified 09/29/16 11:02) RASH [place] And Derivatives Allergy (Intermediate, Verified 09/29/16 11:02) RASH metronidazole Allergy (Intermediate, Verified 09/29/16 11:02) RASH aspirin Allergy (Verified 09/29/16 11:02) ITCHING clopidogrel bisulfate [From Plavix] Allergy (Verified 09/29/16 11:02) ITCHING hydromorphone Allergy (Verified 09/29/16 11:02) VOMITING ibuprofen Allergy (Verified 09/29/16 11:02) STOMACH BLEEDING ketorolac tromethamine [From Toradol] Allergy (Verified 09/29/16 11:02) ITCHING lidocaine Allergy (Verified 09/29/16 11:02) RASH midazolam HCl [From Versed] Allergy (Verified 09/29/16 11:02) NAUSEA vancomycin Allergy (Verified 09/29/16 11:02) ITCHING morphine Adverse Reaction (Mild, Verified 09/29/16 11:02) ITCHING ciprofloxacin [From Cipro] Adverse Reaction (Verified 09/29/16 11:02) SWELLING ciprofloxacin HCl [From Cipro] Adverse Reaction (Verified 09/29/16 11:02) SWELLING - Physical Exam Vital Signs: Vital Signs 02/15/17 02/15/17 02/15/17 06:39 06:41 09:53 Temperature 98.5 F 95.3 F L Pulse Rate 91 H 91 H 92 H Respiratory 20 20 Rate Blood Pressure 118/78 137/97 H O2 Sat by Pulse 97 93 L Oximetry Neuro: WNL Heart: WNL Lungs: WNL GI: WNL - {Optional Preform as Required} Abdomen: WNL Integument: WNL - Impression Impression: malfunctioning lifeport, will replace - Date & Time Date: 02/15/17 Time: 10:17 Short Stay Discharge - Short Stay Discharge Admitting Diagnosis/Reason for Visit: T85.618D Disposition: HOME/ ROUTINE Referrals: Daisy Oviedo MD [Primary Care Provider] - Progress Note/Discharge Note with Instructions: af/vss
--- NOTE | 2017-02-15 10:20 | PCM.SURG1 ---
Surgeon's Initial Post Op Note - Surgeon's Notes Surgeon: nitesh [facility] Director: none Type of Anesthesia: General Endo Anesthesia Administered By: xenia Pre-Operative Diagnosis: malfunctioning lifeport Operative Findings: new lifeport good flash, flush Post-Operative Diagnosis: same Operation Performed: placement left subclavian lifeport, removal right sided port Specimen/Specimens Removed: no Estimated Blood Loss: EBL {In ML}: 5 Blood Products Given: N/A Drains Used: No Drains Post-Op Condition: Good Date of Surgery/Procedure: 02/15/17 Time of Surgery/Procedure: 10:20
--- NOTE | 2017-02-15 10:59 | RAD ---
HISTORY: s/p lifeport insertion COMPARISON: 09/18/2016 FINDINGS: The left MediPort terminates in the SVC. LUNGS: The lungs are clear. Again seen is mild pulmonary venous congestion. PLEURA: No significant pleural effusion identified, no pneumothorax apparent. CARDIOVASCULAR: Normal. OSSEOUS STRUCTURES: No significant abnormalities. VISUALIZED UPPER ABDOMEN: Normal. OTHER FINDINGS: None. IMPRESSION: Left MediPort terminates in the SVC. No acute findings.
[2017-02-15 13:26] VITALS: BP 141/90; PULSE 97; TEMP 99.1; O2SAT 96
--- NOTE | 2017-02-17 16:34 | RAD ---
PROCEDURE: Intraoperative Fluoroscopy. HISTORY: LIFEPORT FINDINGS: Fluoroscopic assistance was provided for life port placement. Please (mGy): 18.24. Total fluoroscopic time (continuous mode) utilized during the procedure: 104.4 seconds.
--- NOTE | 2017-02-21 08:39 | OP ---
PROCEDURE DATE: 02/15/17 PREOPERATIVE DIAGNOSIS: Malfunctioning LifePort. POSTOPERATIVE DIAGNOSIS: Malfunctioning LifePort. OPERATION PERFORMED: Removal of right subclavian LifePort. SURGEON: Etienne Reyna MD ANESTHESIA: General anesthesia. ANESTHESIA ADMINISTERED BY: Nella Benjamin MD ESTIMATED BLOOD LOSS: Minimal. OPERATIVE PROCEEDINGS: Are as follows. The patient was taken to the operating room, placed supine on the operating table. After induction of general anesthesia, the left chest was prepped and draped in the standard surgical fashion. 1% lidocaine was infiltrated to create a field block. Once that was done, the patient had a finder needle inserted into the subclavian vein. A wire was then passed through the finder needle, and the wire was followed using fluoroscopy. The wire was found to be in good position. At that point, the needle was removed. The wire was left in place. A pocket was then made for the LifePort by making an incision in the skin using a #15 blade, carried down through the skin and subcutaneous tissues. The subcutaneous tissues were then divided and enlarged to create a pocket. The catheter was then tunneled from the area where the wire exited to the area of the pocket. At that point, the catheter was measured to the appropriate length and cut and placed on the LifePort hub. The LifePort hub was then placed into the pocket. The patient then had a dilator sheath passed over the wire into the superior vena cava. The obturator and the wire were removed. The catheter was then threaded through the sheath. The sheath was fractured and removed. Fluoroscopy was used to confirm position of the catheter. Once that was done, the deeper tissues were closed using 3-0 Vicryl, and the skin was closed using 4-0 Monocryl at both the LifePort and the catheter exit site. Attention was then turned to the right subclavian catheter where a skin incision was made, carried down through the skin and subcutaneous tissues using a #15 blade. The LifePort hub was then grasped using an Allis clamp and pulled up, and a combination of sharp and blunt dissection was used in order to enucleate the port. Once the port and the entire catheter were removed, it was passed off the field as a specimen. The deeper tissues were then closed using 3-0 Vicryl, and the skin was closed using 4-0 Monocryl. The patient was then awakened from anesthesia, transported to Recovery. Postoperative chest x-ray revealed no evidence of pneumothorax. Etienne Reyna MD Job # [id number]
== END 2017-02-15 14:07 | disposition home or self-care (01) ==
LOC: H.OPSURG 06:11
PROVIDERS: ATTEND Surgery
DX: T85.618 Breakdown (mechanical) of other specified internal prosthetic devices, implants and grafts (principal); X58.XXXD Exposure to other specified factors, subsequent encounter; Z45.2 Encounter for adjustment and management of vascular access device; J45.909 Unspecified asthma, uncomplicated; I25.2 Old myocardial infarction; G40.909 Epilepsy, unspecified, not intractable, without status epilepticus
CPT/HCPCS: 36590; 71010; 88300; 88304; C1788; J0330; J0690; J1100; J1644; J2001; J2405; J2704; J3010; J7040; J7120

== ENCOUNTER 2017-05-04 10:55 | Emergency (ER) | payer MEDICAID ==
[2017-05-04 10:55] VITALS: BMI 29.2
[2017-05-04 11:09] VITALS: BP 160/85; PULSE 85; RESP 18; TEMP 97; O2SAT 100
[2017-05-04] MEDS ORDERED: Sodium Chloride 0.9% 1,000 ML IV STA (11:15)
--- NOTE | 2017-05-04 11:23 | ED PDOC ---
HPI: Abdomen Time Seen by Provider: 05/04/17 11:04 Chief Complaint (Nursing): Abdominal Pain Chief Complaint (Provider): Abdominal Pain History Per: Patient History/Exam Limitations: no limitations Onset/Duration Of Symptoms: Days (x 1 week ) Current Symptoms Are (Timing): Still Present Additional Complaint(s): 52 year old female presents to the ED c/o vomiting, diarrhea and associated dizziness, onset 1 week ago. She also complains of cramping abdominal pain. The dizziness is episodic and worsens when she moves her head. Denies fever, shortness of breath, chest pain, headache, visual changes, weakness, paresthesia and any urinary symptoms. PMD: Dr. Annabella De Leon MD Past Medical History Reviewed: Historical Data, Nursing Documentation, Vital Signs Vital Signs: Last Vital Signs Temp 97 F L 05/04/17 11:04 Pulse 85 05/04/17 11:04 Resp 18 05/04/17 11:04 BP 160/85 H 05/04/17 11:04 Pulse Ox 100 05/07/17 16:11 - Medical History PMH: Arthritis, Asthma, Bronchitis, CAD, CVA, Diverticulitis, HTN, Migraine, Pneumonia, Seizures, TIA Denies: Anxiety (denies), Dementia, Chronic Kidney Disease - Surgical History Surgical History: Cholecystectomy, Hernia Repair - Family History Family History: States: Unknown Family Hx - Social History Current smoker - smoking cessation education provided: Yes (Heavy Smoker > 10 Cigarettes Daily) Drugs: Denies - Home Medications Home Medications: Ambulatory Orders Medication Instructions Recorded Phenobarbital 6 ml PO TID 07/02/14 Enoxaparin [Lovenox] 40 mg SUBCUT DAILY 06/16/15 Famotidine [Pepcid] 20 mg PO BID #60 tab 09/26/16 Phenytoin [Dilantin] 100 mg PO Q8H #40 09/26/16 ALPRAZolam [Xanax] 1 mg PO BID 02/15/17 Oxycodone HCl/Acetaminophen 10 - 325 mg PO Q6 02/15/17 [Endocet 10-325 mg Tablet] oxyCODONE/Acetaminophen [Percocet 5 - 325 mg PO Q4 PRN 02/15/17 5/325 mg Tab] Meclizine [Meclizine*] 25 mg PO Q6 PRN #20 tab 05/04/17 Polyethylene Glycol 3350 [Miralax] 1 tbs PO DAILY PRN #1 bottle 05/04/17 - Allergies Allergies/Adverse Reactions: Allergies Allergy/AdvReac Type Severity Reaction Status Date / Time aloe Allergy Intermediate RASH Verified 05/04/17 11:02 [place] And Derivatives Allergy Intermediate RASH Verified 05/04/17 11:02 metronidazole Allergy Intermediate RASH Verified 05/04/17 11:02 aspirin Allergy ITCHING Verified 05/04/17 11:02 clopidogrel bisulfate Allergy ITCHING Verified 05/04/17 11:02 [From Plavix] hydromorphone Allergy VOMITING Verified 05/04/17 11:02 ibuprofen Allergy STOMACH Verified 05/04/17 11:02 BLEEDING ketorolac tromethamine Allergy ITCHING Verified 05/04/17 11:02 [From Toradol] lidocaine Allergy RASH Verified 05/04/17 11:02 midazolam HCl [From Versed] Allergy NAUSEA Verified 05/04/17 11:02 vancomycin Allergy ITCHING Verified 09/29/16 11:02 morphine AdvReac Mild ITCHING Verified 09/29/16 11:02 ciprofloxacin [From Cipro] AdvReac SWELLING Verified 09/29/16 11:02 ciprofloxacin HCl AdvReac SWELLING Verified 09/29/16 11:02 [From Cipro] Review of Systems ROS Statement: Except As Marked, All Systems Reviewed And Found Negative Constitutional: Negative for: Fever, Weakness Cardiovascular: Negative for: Chest Pain Respiratory: Negative for: Shortness of Breath Gastrointestinal: Positive for: Vomiting, Abdominal Pain (cramping), Diarrhea Genitourinary Female: Negative for: Dysuria, Frequency, Incontinence, Hematuria Neurological: Positive for: Dizziness. Negative for: Weakness, Headache, Other (changes in vision) Physical Exam - Reviewed Nursing Documentation Reviewed: Yes Vital Signs Reviewed: Yes - Physical Exam Appears: Positive for: Non-toxic, No Acute Distress Head Exam: Positive for: ATRAUMATIC, NORMOCEPHALIC Skin: Positive for: Normal Color, Warm, Dry Eye Exam: Positive for: EOMI, Normal appearance, PERRL Neck: Positive for: Normal, Painless ROM, Supple Cardiovascular/Chest: Positive for: Regular Rate, Rhythm. Negative for: Murmur Respiratory: Positive for: Normal Breath Sounds. Negative for: Respiratory Distress Gastrointestinal/Abdominal: Positive for: Tenderness (left side). Negative for : Guarding, Rebound Neurologic/Psych: Positive for: Alert, Oriented - Laboratory Results Result Diagrams: 05/04/17 13:24 05/04/17 13:24 - ECG Interpretation Of ECG: NSR @ 85, no ST-T changes. O2 Sat by Pulse Oximetry: 100 (RA) Pulse Ox Interpretation: Normal Medical Decision Making Medical Decision Making: Time: 11:12 Impression: Vertigo, diarrhea and abdominal pain --Abd Pelvis IV contrast CT --CT Head --EKG --CMP --Urine preg --Urine dip --CBC --PTT --Prothrombin Time --Chest X-ray --Normal Saline IV 100 mls/hr --Glucose POC --Urinalysis Scribe Attestation: Documented by Xenia Cruz, acting as a scribe for Ely Abebe MD Provider Scribe Attestation: All medical record entries made by the Scribe were at my direction and personally dictated by me. I have reviewed the chart and agree that the record accurately reflects my personal performance of the history, physical exam, medical decision making, and the department course for this patient. I have also personally directed, reviewed, and agree with the discharge instructions and disposition. Disposition - Clinical Impression Clinical Impression: Vertigo, Abdominal pain, Constipation - Disposition Disposition: Routine/Home Disposition Time: 15:18 Condition: STABLE Additional Instructions: FOLLOW-UP WITH PMD WITHIN 2 DAYS FOR REEVALUATION. Prescriptions: Meclizine [Meclizine*] 25 mg PO Q6 PRN #20 tab PRN Reason: Dizziness Polyethylene Glycol 3350 [Miralax] 1 tbs PO DAILY PRN #1 bottle PRN Reason: Constipation Instructions: Constipation (ED), Vertigo (ED), Abdominal Pain (ED) Forms: [employer] (Slovenian)
[2017-05-04 13:29] LABS: BASO # 0.2 K/uL (0.0-0.2); BASO % 2.5 % (0.0-2.0); EOS # 0.1 K/uL (0.0-0.7); EOS % 0.9 % (0.0-4.0); HEMOGLOBIN 13.2 g/dL (12.0-16.0); LYMPH # 2.9 K/uL (1.0-4.3); LYMPH % 35.1 % (20.0-40.0); MEAN CELL VOLUME 85.7 fl (81.0-99.0); MEAN CORPUSCULAR HEMOGLOBIN 28.3 pg (27.0-31.0); MEAN CORPUSCULAR HGB CONC 33.1 g/dL (33.0-37.0); MEAN PLATELET VOLUME 6.3 fl (7.2-11.7); MONO # 0.5 K/uL (0.0-0.8); NEUT # 4.6 K/uL (1.8-7.0); NEUT % 55.5 % (50.0-75.0); NRBC % 0.1 % (0.0-0.0); RBC 4.66 Mil/uL (3.80-5.20); WHITE BLOOD COUNT 8.2 K/uL (4.8-10.8)
--- NOTE | 2017-05-04 13:43 | RAD ---
HISTORY: Dizziness COMPARISON: Chest x-ray performed 02/15/17 TECHNIQUE: Chest, one view. FINDINGS: Left-sided central venous catheter extends expected location of the SVC. Examination limited by habitus. LUNGS: Mild pulmonary venous congestion. No focal consolidation. Please note that chest x-ray has limited sensitivity for the detection of pulmonary masses. PLEURA: No significant pleural effusion identified. No definite pneumothorax . CARDIOVASCULAR: Heart size appears within normal limits. OSSEOUS STRUCTURES: No acute osseous abnormality identified. VISUALIZED UPPER ABDOMEN: Unremarkable. OTHER FINDINGS: None. IMPRESSION: Left-sided central venous catheter extends expected location of the SVC. Mild pulmonary venous congestion.
[2017-05-04 13:44] LABS: ALB/GLOB RATIO 0.9 (1.0-2.1); ALBUMIN 3.9 g/dL (3.5-5.0); ALT/SGPT 56 U/L (9-52); AST/SGOT 36 U/L (14-36); BLOOD UREA NITROGEN 4 mg/dl (7-17); CALCIUM 9.5 mg/dL (8.4-10.2); GFR AFRICAN-AMERICAN > 60; GFR NON-AFRICAN AMERICAN > 60
[2017-05-04 13:58] LABS: PROTHROMBIN TIME 11.7 Seconds (9.8-13.1)
[2017-05-04 13:59] LABS: INR 1.1 (0.9-1.2); PARTIAL THROMBOPLASTIN TIME 30.8 Seconds (25.6-37.1)
--- NOTE | 2017-05-04 14:29 | CT ---
PROCEDURE: CT Abdomen and Pelvis without intravenous contrast HISTORY: Left-sided abdominal pain. Relevant surgical history: Ventral hernia repair. Colonic resection. COMPARISON: 07/29/2015. CT abdomen and pelvis. 09/20/2016 abdominal ultrasound TECHNIQUE: Unenhanced study. Neither oral nor intravenous contrast administered. Radiation dose: Total exam DLP = 982.84 mGy-cm. This CT exam was performed using one or more of the following dose reduction techniques: Automated exposure control, adjustment of the mA and/or kV according to patient size, and/or use of iterative reconstruction technique. FINDINGS: LOWER THORAX: Subsegmental atelectasis LIVER: Hepatic steatosis. No focal masses. No intrahepatic bile duct dilatation or perihepatic ascites. GALLBLADDER AND BILE DUCTS: Status post cholecystectomy. No abnormality is seen in the gallbladder fossa. PANCREAS: Unremarkable. No gross lesion or ductal dilatation. SPLEEN: Unremarkable. ADRENALS: Unremarkable. No mass. KIDNEYS AND URETERS: Unremarkable. No hydronephrosis. No solid mass. VASCULATURE: Unremarkable. No aortic aneurysm. BOWEL: No adverse findings related to resection of portions of the descending colon. Anastomotic suture line unremarkable. Diverticulosis without an acute inflammatory component or other associated pathologic process. . Constipation without fecal impaction or obstruction. APPENDIX: Unremarkable. Normal appendix. PERITONEUM: Unremarkable. No free fluid. No free air. LYMPH NODES: Unremarkable. No enlarged lymph nodes. BLADDER: Unremarkable. REPRODUCTIVE: Unremarkable. BONES: No acute fracture. OTHER FINDINGS: None. IMPRESSION: No significant or acute findings to account for/ related to the clinical presentation. Additional benign and/or incidental findings described above.
--- NOTE | 2017-05-04 14:31 | CT ---
PROCEDURE: CT HEAD WITHOUT CONTRAST. HISTORY: Vertigo COMPARISON: 09/18/2016 TECHNIQUE: Axial computed tomography images were obtained through the head/brain without intravenous contrast. Radiation dose: Total exam DLP = 968.64 mGy-cm. This CT exam was performed using one or more of the following dose reduction techniques: Automated exposure control, adjustment of the mA and/or kV according to patient size, and/or use of iterative reconstruction technique. FINDINGS: HEMORRHAGE: No intracranial hemorrhage. BRAIN: No mass effect or edema. No atrophy or chronic microvascular ischemic changes. VENTRICLES: Unremarkable. No hydrocephalus. CALVARIUM: Unremarkable. PARANASAL SINUSES: Unremarkable as visualized. No significant inflammatory changes. MASTOID AIR CELLS: Unremarkable as visualized. No inflammatory changes. OTHER FINDINGS: None. IMPRESSION: No intracranial mass, hemorrhage or evidence of acute infarct. Unremarkable examination.
--- NOTE | 2017-05-05 18:13 | CARD ---
APPROVED REPORT EKG Measurement Heart [id number] <Conclusion> Normal sinus rhythm Normal ECG
== END 2017-05-04 15:43 | disposition home or self-care (01) ==
LOC: H.ER 10:55
DX: K59.00 Constipation, unspecified (principal); R42 Dizziness and giddiness; I25.10 Atherosclerotic heart disease of native coronary artery without angina pectoris; J45.909 Unspecified asthma, uncomplicated; Z86.73 Personal history of transient ischemic attack (TIA), and cerebral infarction without residual deficits

== ENCOUNTER → 2017-05-11 | Day surgery (SDC) | payer MEDICAID ==
[~2017-05-11] MED LIST: Iodixanol 320 MG/ML 100 ML BOTTLE IV ONE
[2017-05-11 08:42] VITALS: O2SAT 97; BMI 27.4
[2017-05-11 11:00] VITALS: PULSE 83
[2017-05-11 11:44] VITALS: BP 135/87; RESP 20; TEMP 98.1
--- NOTE | 2017-05-11 11:56 | CP.SDSHP ---
Same Day Surgery H & P - History Proposed Procedure: portogram Pre-Op Diagnosis: malfunctioning chest port - Allergies Allergies: Allergies aloe Allergy (Intermediate, Verified 05/04/17 11:02) RASH [place] And Derivatives Allergy (Intermediate, Verified 05/04/17 11:02) RASH metronidazole Allergy (Intermediate, Verified 05/04/17 11:02) RASH aspirin Allergy (Verified 05/04/17 11:02) ITCHING clopidogrel bisulfate [From Plavix] Allergy (Verified 05/04/17 11:02) ITCHING hydromorphone Allergy (Verified 05/04/17 11:02) VOMITING ibuprofen Allergy (Verified 05/04/17 11:02) STOMACH BLEEDING ketorolac tromethamine [From Toradol] Allergy (Verified 05/04/17 11:02) ITCHING lidocaine Allergy (Verified 05/04/17 11:02) RASH midazolam HCl [From Versed] Allergy (Verified 05/04/17 11:02) NAUSEA vancomycin Allergy (Verified 09/29/16 11:02) ITCHING morphine Adverse Reaction (Mild, Verified 09/29/16 11:02) ITCHING ciprofloxacin [From Cipro] Adverse Reaction (Verified 09/29/16 11:02) SWELLING ciprofloxacin HCl [From Cipro] Adverse Reaction (Verified 09/29/16 11:02) SWELLING - Physical Exam Vital Signs: Vital Signs 05/11/17 05/11/17 05/11/17 08:28 08:40 10:40 Temperature 98.3 F 96.4 F L Pulse Rate 85 83 Respiratory 18 20 18 Rate Blood Pressure 119/63 146/82 O2 Sat by Pulse 97 Oximetry 05/11/17 11:43 Temperature 98.1 F Pulse Rate 83 Respiratory 20 Rate Blood Pressure 135/87 O2 Sat by Pulse 97 Oximetry - Impression Impression: 52 yo female w/ malfunctioning chest port; plan portogram - Date & Time Date: 05/11/17 Time: 10:30 Short Stay Discharge - Short Stay Discharge Admitting Diagnosis/Reason for Visit: 187.8 Disposition: HOME/ ROUTINE Referrals: FAMILY PROVIDER,NO [Primary Care Provider] -
--- NOTE | 2017-05-11 11:57 | PCM.SURG1 ---
Surgeon's Initial Post Op Note - Surgeon's Notes Surgeon: Maxwell Coronel MD Wax Ball Molder: None Type of Anesthesia: Local Pre-Operative Diagnosis: malfunctioning chest port Operative Findings: indwelling left sided chest port. flush: yes. aspirate: no. fibrin sheath at tip of catheter Post-Operative Diagnosis: same Operation Performed: portogram Specimen/Specimens Removed: n/a Estimated Blood Loss: EBL {In ML}: 0 Date of Surgery/Procedure: 05/11/17 Time of Surgery/Procedure: 11:15
--- NOTE | 2017-05-11 16:17 | VASCULAR ---
PROCEDURE: CHEST PORTOGRAPHY CLINICAL HISTORY: 52-year-old female with malfunctioning chest port is referred to Interventional Radiology for chest portography. COMPARISON: Chest portography performed 09/29/2016. PROCEDURE: 1. Portography. INTERVENTIONAL RADIOLOGIST: Maxwell Coronel M.D. (the attending was present for the entire procedure) ANESTHESIA: None. MEDICATIONS: None. CONTRAST: 5 mL contrast. COMPLICATIONS: None. RADIATION DOSE: Fluoroscopy Time: 12.4 seconds Cumulative Dose: 3.26 mGy PROCEDURE DESCRIPTION AND FINDINGS: The risks, benefits, alternatives and possible complications of the procedure were fully discussed; all questions were answered and informed consent was obtained. The patient was brought into the interventional suite and a pre-procedure 'time-out' was performed. The patient was placed on the fluoroscopy table in the supine position. The skin overlying the indwelling chest port was accessed utilizing strict aseptic technique. Maximum sterile barrier precautions were maintained throughout the entire procedure. Preliminary fluoroscopic cavalry scout image of the chest demonstrated an indwelling left subclavian access chest port with catheter tip at the superior vena cava. Evaluation of the chest port yields: Forward flush: No resistance Aspiration: No blood return Digital subtraction chest portography was then performed demonstrating fibrin sheath at the tip of the catheter. The patient tolerated the procedure well without immediate post-procedure complications and was transferred back to same day surgery in stable condition. IMPRESSION: Fibrin sheath at the tip of the port catheter. Treatment options can include: 1. Fibrinolytic catheter dwell 2. Endovascular fibrin sheath stripping 3. Port replacement
== END | disposition home or self-care (01) ==
LOC: H.OPSURG 07:58
PROVIDERS: ATTEND Surgery
DX: I87.8 Other specified disorders of veins (principal); D65 Disseminated intravascular coagulation [defibrination syndrome]
CPT/HCPCS: 36598; Q9967

== ENCOUNTER 2017-07-17 05:37 | Emergency (ER) | payer MEDICAID ==
[2017-07-17 05:42] VITALS: BMI 21.5
[2017-07-17] MEDS ORDERED: Benzoin Compund Tincture 30 ML TP ONE (06:07)
[2017-07-17 06:39] LABS: BASO # 0.2 K/uL (0.0-0.2); BASO % 1.9 % (0.0-2.0); EOS # 0.1 K/uL (0.0-0.7); HEMOGLOBIN 14.4 g/dL (12.0-16.0); LYMPH # 4.8 K/uL (1.0-4.3); LYMPH % 52.5 % (20.0-40.0); MEAN CELL VOLUME 87.8 fl (81.0-99.0); MEAN CORPUSCULAR HEMOGLOBIN 28.8 pg (27.0-31.0); MEAN CORPUSCULAR HGB CONC 32.8 g/dL (33.0-37.0); MEAN PLATELET VOLUME 6.6 fl (7.2-11.7); MONO # 0.5 K/uL (0.0-0.8); NEUT # 3.7 K/uL (1.8-7.0); NEUT % 39.6 % (50.0-75.0); NRBC % 0.1 % (0.0-0.0); RBC 5.01 Mil/uL (3.80-5.20); RED CELL DISTRIBUTION WIDTH 14.8 % (11.5-14.5); WHITE BLOOD COUNT 9.2 K/uL (4.8-10.8)
[2017-07-17 06:48] LABS: CALCIUM 9.7 mg/dL (8.4-10.2); GFR AFRICAN-AMERICAN > 60; GFR NON-AFRICAN AMERICAN > 60
[2017-07-17 06:50] LABS: BLOOD UREA NITROGEN 9 mg/dl (7-17)
--- NOTE | 2017-07-17 06:52 | ED PDOC ---
HPI: Seizure Time Seen by Provider: 07/17/17 06:06 Chief Complaint (Nursing): Seizure Chief Complaint (Provider): Seizure History Per: Patient, Family () History/Exam Limitations: no limitations Recent Seizure Activity Began: Just Before Arrival Number Of Seizures: One Additional Complaint(s): 52 year old female brought in by EMS and accompanied by presents to ED due to seizure-like activity x30 minutes [employer] and has a past medical history of seizures, cerebrovascular accident, and anxiety. states that patient was shaking her arms and lost consciousness. (-) fall. Patient is unable to give history at this time as she is actively showing seizure-like activity. notes patient takes Dilantin and phenobarbitals for her seizures. PCP: Mary De Leon Past Medical History Reviewed: Historical Data, Nursing Documentation, Vital Signs Vital Signs: Last Vital Signs Temp 98.2 F 07/17/17 07:30 Pulse 84 07/17/17 12:25 Resp 18 07/17/17 12:25 BP 126/86 07/17/17 12:25 Pulse Ox 100 07/17/17 22:12 - Medical History PMH: Anxiety, Arthritis, Asthma, Bronchitis, CAD, CVA, Diverticulitis, Deep Vein Thrombosis, Fractures, Gall Bladder Disease, Migraine, Pneumonia, Seizures , TIA Denies: Dementia, HTN, Chronic Kidney Disease - Surgical History Surgical History: Cholecystectomy, Hernia Repair - Family History Family History: States: Unknown Family Hx - Home Medications Home Medications: Ambulatory Orders Medication Instructions Recorded Phenobarbital 6 ml PO TID 07/02/14 Phenytoin [Dilantin] 100 mg PO Q8H #40 09/26/16 ALPRAZolam [Xanax] 1 mg PO BID 02/15/17 Oxycodone HCl/Acetaminophen 10 - 325 mg PO Q6 02/15/17 [Endocet 10-325 mg Tablet] Meclizine [Meclizine*] 25 mg PO Q6 PRN #20 tab 05/04/17 Polyethylene Glycol 3350 [Miralax] 1 tbs PO DAILY PRN #1 bottle 05/04/17 - Allergies Allergies/Adverse Reactions: Allergies Allergy/AdvReac Type Severity Reaction Status Date / Time aloe Allergy Intermediate RASH Verified 05/04/17 11:02 [place] And Derivatives Allergy Intermediate RASH Verified 05/04/17 11:02 metronidazole Allergy Intermediate RASH Verified 05/04/17 11:02 aspirin Allergy ITCHING Verified 05/04/17 11:02 clopidogrel bisulfate Allergy ITCHING Verified 05/04/17 11:02 [From Plavix] hydromorphone Allergy VOMITING Verified 05/04/17 11:02 ibuprofen Allergy STOMACH Verified 05/04/17 11:02 BLEEDING ketorolac tromethamine Allergy ITCHING Verified 05/04/17 11:02 [From Toradol] lidocaine Allergy RASH Verified 05/04/17 11:02 midazolam HCl [From Versed] Allergy NAUSEA Verified 05/04/17 11:02 vancomycin Allergy ITCHING Verified 09/29/16 11:02 morphine AdvReac Mild ITCHING Verified 09/29/16 11:02 ciprofloxacin [From Cipro] AdvReac SWELLING Verified 09/29/16 11:02 ciprofloxacin HCl AdvReac SWELLING Verified 09/29/16 11:02 [From Cipro] Review of Systems Review Of Systems: ROS cannot be obtained secondary to pt's inabilty to answer questions. Neurological: Positive for: Seizures, Other ((+) LOC) Physical Exam - Reviewed Nursing Documentation Reviewed: Yes Vital Signs Reviewed: Yes - Physical Exam Appears: Positive for: Non-toxic, No Acute Distress (patient is actively having a seizure) Skin: Positive for: Normal Color, Warm, Dry Eye Exam: Positive for: EOMI, PERRL Neck: Positive for: Normal, Painless ROM, Supple Cardiovascular/Chest: Positive for: Regular Rate, Rhythm, Tachycardia. Negative for: Murmur Respiratory: Positive for: Normal Breath Sounds. Negative for: Respiratory Distress Gastrointestinal/Abdominal: Positive for: Soft. Negative for: Tenderness Extremity: Positive for: Normal ROM. 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 Negative for: Alert ( Obtunded), Oriented, Motor/Sensory Deficits - Laboratory Results Result Diagrams: 07/17/17 06:30 07/17/17 06:30 - ECG O2 Sat by Pulse Oximetry: 100 (RA) Pulse Ox Interpretation: Normal - Progress Re-evaluation Time: 06:45 Condition: Re-examined, Improved Medical Decision Making Medical Decision Makin Initial impression: recurrent seizures r/o cerebrovascular accident Initial plan: * CT HEAD * EKG * EtOH serum * Labs * Dilantin * UDrug screen * UDip * Phenobarbital * Ativan 2mg IV x2 * Re-eval 0659 CT HEAD FINDINGS: BRAIN: Unremarkable. No hemorrhage. No significant white matter disease. No edema. VENTRICLES: Unremarkable. No ventriculomegaly. BONES/JOINTS: Unremarkable. No acute fracture. SOFT TISSUES: Unremarkable. SINUSES: Unremarkable as visualized. No acute sinusitis. MASTOID AIR CELLS: Unremarkable as visualized. No mastoid effusion. IMPRESSION: No acute findings. Scribe Attestation: Documented by Patricia Verdin acting as a scribe Maria Alvarez MD. Scribe Attestation: All medical record entries made by the Scribe were at my direction and personally dictated by me. I have reviewed the chart and agree that the record accurately reflects my personal performance of the history, physical exam, medical decision making, and the department course for this patient. I have also personally directed, reviewed, and agree with the discharge instructions and disposition. Disposition - Clinical Impression Clinical Impression: Seizure - Patient ED Disposition Is Patient to be Admitted: Transfer of Care Counseled Patient/Family Regarding: Studies Performed, Diagnosis - Disposition Referrals: Hudson Hernandez MD [Staff Provider] - (2 to 3 days) Daisy Oviedo MD [Primary Care Provider] - (2 to 3 days) Disposition: Transfer of Care Disposition Time: 07:00 Condition: STABLE Additional Instructions: continue your current medications Instructions: Seizures, Adult (DC) Patient Signed Over To: Clarence Melissa
[2017-07-17] MEDS ORDERED: Phenytoin 250 mg/5 ml Inj IVP ONE (07:04)
[2017-07-17 07:30] VITALS: TEMP 98.2
[2017-07-17] MEDS ORDERED: Phenytoin 500 MG in Sodium Chloride 0.9% 100 ML IVP ONE (08:00)
--- NOTE | 2017-07-17 09:40 | ED PDOC ---
- Laboratory Results Result Diagrams: 07/17/17 06:30 07/17/17 06:30 - ECG O2 Sat by Pulse Oximetry: 100 (RA) Pulse Ox Interpretation: Normal Medical Decision Making Medical Decision Making: Time: 699 --Patient is endorsed to provider from Dr. Maria Alvarez. Pending CT results, neuro consult and re-evaluation. Time: 704 --CT head without contrast FINDINGS: BRAIN: Unremarkable. No hemorrhage. No significant white matter disease. No edema. VENTRICLES: Unremarkable. No ventriculomegaly. BONES/JOINTS: Unremarkable. No acute fracture. SOFT TISSUES: Unremarkable. SINUSES: Unremarkable as visualized. No acute sinusitis. MASTOID AIR CELLS: Unremarkable as visualized. No mastoid effusion. IMPRESSION: No acute findings. Time: 933 --Discussed case with Dr. Hudson Hernandez, neurologist. Advised no changes in medication and will have patient follow up as outpatient in office. Time: 935 --Upon re-evaluation, patient is asymptomatic and medically stable. Neurological exam performed with negative findings. Patient requires no further treatment in the ED at this time. Counseling was provided and all questions were answered regarding diagnosis and need for follow up with neurologist in 2- 3 days. There is agreement to discharge plan. Return if symptoms persist or worsen. Clinical Impression: Seizure Scribe Attestation: Documented by Aimee Kendrick, acting as a scribe for Clarence Melissa MD. Provider Scribe Attestation: All medical record entries made by the Scribe were at my direction and personally dictated by me. I have reviewed the chart and agree that the record accurately reflects my personal performance of the history, physical exam, medical decision making, and the department course for this patient. I have also personally directed, reviewed, and agree with the discharge instructions and disposition. Disposition Discussed With Dr.: Hudson Hernandez Doctor Will See Patient In The: Office Counseled Patient/Family Regarding: Studies Performed, Diagnosis, Need For Followup - Clinical Impression Clinical Impression: Seizure - POA Present On Arrival: None - Disposition Referrals: Hudson Hernandez MD [Staff Provider] - (2 to 3 days) Daisy Oviedo MD [Primary Care Provider] - (2 to 3 days) Disposition: Routine/Home Disposition Time: 11:58 Condition: GOOD Additional Instructions: continue your current medications Instructions: Seizures, Adult (DC) Forms: [employer] (M[place]ese)
--- NOTE | 2017-07-17 11:02 | CT ---
HEAD CT WITHOUT CONTRAST 07/17/[address] acquisition through the head was performed without intravenous contrast as requested. Physical history of seizures and comparison is made to prior head CT 05/04/2017. Radiation dose: DLP = 1008.59 mGy-cm. This CT exam was performed using one or more of the following dose reduction techniques: Automated exposure control, adjustment of the mA and/or kV according to patient size, and/or use of iterative reconstruction technique. Normal corticomedullary differentiation is appreciated. Note, artifacts from the temporal bones obscure the left greater than right middle cranial fossa. There is no definite mass effect appreciated throughout in the ventricular sulcal and cisternal spaces appear unremarkable throughout. Midline brain anatomy is grossly unremarkable. No definite edema pattern appears appreciated to suggest an acute separate brain infarction and there is no intracranial hemorrhage appreciated this time either. Examination does not appear significantly changed in the interval. IMPRESSION: Unremarkable unenhanced head CT without significant interval change compared to prior head CT dated 05/04/2017.
[2017-07-17 12:27] VITALS: BP 126/86; PULSE 84; RESP 18
[2017-07-17 22:13] VITALS: O2SAT 100
--- NOTE | 2017-07-18 11:50 | CARD ---
APPROVED REPORT EKG Measurement Heart [id number] <Conclusion> Normal sinus rhythm Normal ECG
== END 2017-07-17 12:06 | disposition home or self-care (01) ==
LOC: H.ER 05:37
DX: G40.909 Epilepsy, unspecified, not intractable, without status epilepticus (principal); I25.10 Atherosclerotic heart disease of native coronary artery without angina pectoris; Z86.718 Personal history of other venous thrombosis and embolism; Z86.73 Personal history of transient ischemic attack (TIA), and cerebral infarction without residual deficits; Z88.5 Allergy status to narcotic agent
CPT/HCPCS: 70450; 80048; 80184; 80185; 80320; 85025; 93005; 96374; 99285; J1165; J2060

== ENCOUNTER 2017-08-03 07:58 | Day surgery (SDC) | payer MEDICAID ==
[2017-08-03 09:12] VITALS: BMI 25.3
[2017-08-03] MEDS ORDERED: Iohexol 240 (50 ml) ONE (10:46)
[2017-08-03 10:51] VITALS: BP 129/84; PULSE 87; RESP 16; TEMP 96.7; O2SAT 97
--- NOTE | 2017-08-03 11:41 | CP.SDSHP ---
Same Day Surgery H & P - History Proposed Procedure: port check Pre-Op Diagnosis: port leak, malfunctioning chest port - Allergies Allergies: Allergies aloe Allergy (Intermediate, Verified 08/03/17 08:11) RASH [place] And Derivatives Allergy (Intermediate, Verified 08/03/17 08:11) RASH metronidazole Allergy (Intermediate, Verified 08/03/17 08:11) RASH aspirin Allergy (Verified 08/03/17 08:11) ITCHING clopidogrel bisulfate [From Plavix] Allergy (Verified 08/03/17 08:11) ITCHING hydromorphone Allergy (Verified 08/03/17 08:11) VOMITING ibuprofen Allergy (Verified 08/03/17 08:11) STOMACH BLEEDING ketorolac tromethamine [From Toradol] Allergy (Verified 08/03/17 08:11) ITCHING lidocaine Allergy (Verified 08/03/17 08:11) RASH midazolam HCl [From Versed] Allergy (Verified 08/03/17 08:11) NAUSEA vancomycin Allergy (Verified 08/03/17 08:11) ITCHING morphine Adverse Reaction (Mild, Verified 08/03/17 08:11) ITCHING ciprofloxacin [From Cipro] Adverse Reaction (Verified 08/03/17 08:11) SWELLING ciprofloxacin HCl [From Cipro] Adverse Reaction (Verified 08/03/17 08:11) SWELLING - Physical Exam Vital Signs: Vital Signs 08/03/17 08/03/17 08/03/17 08:50 08:51 10:50 Temperature 98.3 F 96.7 F L Pulse Rate 85 85 87 Respiratory 20 16 Rate Blood Pressure 119/78 129/84 O2 Sat by Pulse 95 97 Oximetry - Impression Impression: 52 yo female w/ malfunctioning chest port, suspected leak; plan port check - Date & Time Date: 08/03/17 Time: 10:00 Short Stay Discharge - Short Stay Discharge Admitting Diagnosis/Reason for Visit: MALFUNCTIONING DEVICE Disposition: HOME/ ROUTINE Referrals: Daisy Oviedo MD [Primary Care Provider] -
--- NOTE | 2017-08-03 11:43 | PCM.SURG1 ---
Surgeon's Initial Post Op Note - Surgeon's Notes Surgeon: Maxwell Coronel MD Job Foreman: None Pre-Operative Diagnosis: malfunctioning chest port, port leak Operative Findings: port leak Post-Operative Diagnosis: same Operation Performed: chest portography Specimen/Specimens Removed: n/a Estimated Blood Loss: EBL {In ML}: 0 Date of Surgery/Procedure: 08/03/17 Time of Surgery/Procedure: 10:45
--- NOTE | 2017-08-03 15:30 | VASCULAR ---
PROCEDURE: CHEST PORTOGRAPHY CLINICAL HISTORY: 52-year-old female with malfunctioning chest port is referred to Interventional Radiology for chest portography. COMPARISON: Chest portography performed 05/11/2017. PROCEDURE: 1. Portography. INTERVENTIONAL RADIOLOGIST: Maxwell Coronel M.D. (the attending was present for the entire procedure) ANESTHESIA: None. MEDICATIONS: None. CONTRAST: 5 mL contrast. COMPLICATIONS: None. RADIATION DOSE: Fluoroscopy Time: 35.7 seconds Cumulative Dose: 4.38 mGy PROCEDURE DESCRIPTION AND FINDINGS: The risks, benefits, alternatives and possible complications of the procedure were fully discussed; all questions were answered and informed consent was obtained. The patient was brought into the interventional suite and a pre-procedure 'time-out' was performed. The patient was placed on the fluoroscopy table in the supine position. The skin overlying the indwelling chest port was accessed utilizing strict aseptic technique. Maximum sterile barrier precautions were maintained throughout the entire procedure. Preliminary fluoroscopic leave manager image of the chest demonstrated an indwelling left subclavian vein access chest port with catheter tip at the superior vena cava. Evaluation of the chest port yields: Forward flush: No resistance, pain in left shoulder area Aspiration: No blood return Chest portography was then performed demonstrating pooling of contrast in the port pocket around the reservoir and along the catheter tubing compatible with port leak. The patient tolerated the procedure well without immediate post-procedure complications and was transferred back to same day surgery in stable condition. IMPRESSION: Chest portography demonstrated pooling of contrast in the port pocket around the reservoir and along the catheter tubing compatible with port leak.
== END 2017-08-03 11:40 | disposition home or self-care (01) ==
LOC: H.OPSURG 07:58
PROVIDERS: ATTEND Surgery
DX: T82.898A Other specified complication of vascular prosthetic devices, implants and grafts, initial encounter (principal); X58.XXXA Exposure to other specified factors, initial encounter
CPT/HCPCS: 36598; Q9966

== ENCOUNTER 2017-09-08 10:03 | Day surgery (SDC) | payer MEDICAID ==
[2017-09-08 11:02] VITALS: BMI 27.8
[2017-09-08] MEDS ORDERED: Iodixanol 320 MG/ML 100 ML BOTTLE IV ONE (12:44)
--- NOTE | 2017-09-08 13:53 | CP.SDSHP ---
Same Day Surgery H & P - History Proposed Procedure: Port revision, venogram, angioplasty Pre-Op Diagnosis: Poor venous access, nonfunctional port - Allergies Allergies: Allergies aloe Allergy (Intermediate, Verified 09/07/17 14:12) RASH [place] And Derivatives Allergy (Intermediate, Verified 09/07/17 14:12) RASH metronidazole Allergy (Intermediate, Verified 09/07/17 14:12) RASH aspirin Allergy (Verified 09/07/17 14:12) ITCHING clopidogrel bisulfate [From Plavix] Allergy (Verified 09/07/17 14:12) ITCHING hydromorphone Allergy (Verified 09/07/17 14:12) VOMITING ibuprofen Allergy (Verified 09/07/17 14:12) STOMACH BLEEDING ketorolac tromethamine [From Toradol] Allergy (Verified 09/07/17 14:12) ITCHING lidocaine Allergy (Verified 09/07/17 14:12) RASH midazolam HCl [From Versed] Allergy (Verified 09/07/17 14:12) NAUSEA vancomycin Allergy (Verified 09/07/17 14:12) ITCHING morphine Adverse Reaction (Mild, Verified 09/07/17 14:12) ITCHING ciprofloxacin [From Cipro] Adverse Reaction (Verified 09/07/17 14:12) SWELLING ciprofloxacin HCl [From Cipro] Adverse Reaction (Verified 09/07/17 14:12) SWELLING - Physical Exam Vital Signs: Vital Signs 09/08/17 09/08/17 09/08/17 10:43 10:53 12:59 Temperature 99.1 F 97.1 F L Pulse Rate 83 83 83 Respiratory 18 18 Rate Blood Pressure 119/76 147/72 O2 Sat by Pulse 95 100 Oximetry Mental Status: Alert & Oriented x3 - Impression Impression: Pt with non functional port referred for port evaluation and revision. Plan portogram, SVC gram, METAL TANK BUILDER of subclavian stenosis. Port placement. Pt. Evaluated Today:Candidate for Anesthesia & Procedure: Yes (ASA3 Malampati 3) - Date & Time Date: 09/08/17 Time: 12:45 Short Stay Discharge - Short Stay Discharge Admitting Diagnosis/Reason for Visit: POOR VENOUS ACCESS Referrals: Daisy Oviedo MD [Primary Care Provider] -
--- NOTE | 2017-09-08 13:55 | PCM.SURG1 ---
Surgeon's Initial Post Op Note - Surgeon's Notes Surgeon: Eric Barraza MD Broke Beater: NONE Type of Anesthesia: IV Sedation Pre-Operative Diagnosis: Port dysfuction, SVC stenosis, subclavian stenosis. Operative Findings: Portogram showed left subclavian vein stenosis, significant fibrin throughout subclavian vein and port catheter, SVC stenosis. Post-Operative Diagnosis: Port dysfuction, SVC stenosis, subclavian stenosis. Operation Performed: SVC gram, balloon angioplasty SVC, subclavian vein CULLET CRUSHER 8 mm , placment of 8 fr single lumen port. Specimen/Specimens Removed: NONE Estimated Blood Loss: EBL {In ML}: 5 Blood Products Given: N/A Drains Used: No Drains Post-Op Condition: Fair Date of Surgery/Procedure: 09/08/17 Time of Surgery/Procedure: 13:50
[2017-09-08] MEDS ORDERED: Lactated Ringer's 1,000 ML IV ONE (14:00)
[2017-09-08] MEDS ORDERED: Oxycodone/Acetaminophen 5/325 mg Tab PO PRN (15:10)
[2017-09-08 17:08] VITALS: BP 120/71; PULSE 85; RESP 18; TEMP 98.3; O2SAT 96
--- NOTE | 2017-09-12 09:40 | VASCULAR ---
PROCEDURE: Date of study: 09/08/2017 Procedure: 1. Removal left subclavian vein port catheter, [id number] 2. Placement of a left subclavian vein port catheter, CPT 60302 3. Superior vena cavagram 4. Percutaneous balloon angioplasty brachycephalic vein and subclavian vein with an 8 millimeter balloon Medications: The patient sedated by the anesthesiologist with IV sedation along with physiologic monitoring, 1 gm Ancef Total Fluoro time: 227. Seconds Radiation: 42.33mGy EBL: 5 cc HISTORY: Nonfunctional left subclavian vein port a catheter with tip in the innominate vein, no blood return, or venous access TECHNIQUE: Following formed consent the procedure time-out, the patient placed supine on interval stable and the left neck and chest were prepped and draped in the usual sterile fashion. A fluoroscopic image showed a left subclavian vein port a catheter with tip of the catheter in the innominate vein. After the patient sedated by the anesthesiologist along with physiologic monitoring, the port was accessed with a Cole needle. Contrast injected report outlined the port catheter and significant fibrin sheath along the length of the port catheter would retrograde flow into the port pocket. An incision was made over the existing port pocket with a 15 scalpel. A guidewire was advanced through the port catheter into the superior vena cava. The port and port catheter were then removed. A 7 Citizen [place] vascular sheath was advanced over the wire into the subclavian vein. An angled catheter was advanced over the wire into the superior vena cava in the superior vena cavagram performed. Superior vena cava showed fibrin sheath within the proximal SVC along with 60% stenosis of the brachiocephalic vein and subclavian vein. An 8 millimeter x 4 centimeter balloon was advanced through the sheath over the wire and positioned within the stenotic subclavian vein segment and brachiocephalic vein segment and balloon angioplasty is performed. Post balloon angioplasty repeat venogram showed improved flow across the brachiocephalic vein and superior vena cava. An 8 Citizen [place] port catheter was then advanced over the wire and positioned within the SVC. The catheter was adjusted for length, constant, and attached report. A new port was placed in the port pocket and was secured with 2-0 Prolene. The port was flushed and locked with heparin. The port pocket was closed absorbable 4-0 Vicryl sutures. Was applied. Final chest x-ray showed a left internal jugular vein port with the port catheter tip in the superior vena cava. IMPRESSION: Removal of left subclavian vein port and placement of the new left subclavian port. 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 Stenotic vein segments were treated with 8 millimeter balloon angioplasty.
== END 2017-09-08 16:35 | disposition home or self-care (01) ==
LOC: H.OPSURG 10:03
PROVIDERS: ATTEND Surgery
DX: T85.9XXA Unspecified complication of internal prosthetic device, implant and graft, initial encounter (principal); I87.1 Compression of vein; I70.8 Atherosclerosis of other arteries; Z88.5 Allergy status to narcotic agent
CPT/HCPCS: 36012; 36561; 37246; 75825; A4310; C1725; C1751; C1769; J0690; J7120; Q9967

== ENCOUNTER 2018-01-16 15:24 | Emergency (ER) | payer MEDICAID ==
[2018-01-16 15:25] VITALS: BMI 27.8
[2018-01-16 15:30] VITALS: O2SAT 94
--- NOTE | 2018-01-16 16:03 | ED PDOC ---
HPI: Seizure Time Seen by Provider: 01/16/18 15:34 Chief Complaint (Nursing): Seizure Chief Complaint (Provider): Seizure History Per: Family () History/Exam Limitations: clinical condition Recent Seizure Activity Began: Just Before Arrival Number Of Seizures: Multiple (2) Length Of Seizures (Duration): Unknown Precipitating Factor(s): Other (anxiety) Additional Complaint(s): 52 year old female with pmHx of CVA, ND and seizures, arrives to ED with for an evaluation of 2 seizures prior to arrival. believes patient may have became anxious after seeing a bee outside due to allergic reaction history to bee stings, prompting seizure activity. Patient was found "passed out" outside by whom witnessed the second seizure. He states that patient typically has episodes [id number]. Otherwise, no nausea, vomiting, cough, chest pain, or shortness of breath. Of note, patient has left-sided weakness status post CVA, in which, she regained some strength back 2.5 months ago. notes patient is slowly returning to baseline upon arrival to ED. Neuro: Dr. Hudson Hernandez Past Medical History Reviewed: Historical Data, Nursing Documentation, Vital Signs Vital Signs: Last Vital Signs Temp Pulse 100 H 01/16/18 15:28 Resp 16 01/16/18 15:28 BP 154/86 H 01/16/18 15:28 Pulse Ox 94 L 01/16/18 15:28 - Medical History PMH: Anxiety, Arthritis, Asthma, Bronchitis, CAD, CVA, Diverticulitis, Deep Vein Thrombosis, Fractures, Gall Bladder Disease, Migraine, Pneumonia, Seizures, TIA Denies: Dementia, HTN, Chronic Kidney Disease - Surgical History Surgical History: Cholecystectomy, Hernia Repair - Family History Family History: States: Unknown Family Hx - Home Medications Home Medications: Ambulatory Orders Medication Instructions Recorded Phenobarbital 6 ml PO TID 07/02/14 Phenytoin [Dilantin] 100 mg PO Q8H #40 09/26/16 ALPRAZolam [Xanax] 1 mg PO BID 02/15/17 Oxycodone HCl/Acetaminophen 10 - 325 mg PO Q6 02/15/17 [Endocet 10-325 mg Tablet] - Allergies Allergies/Adverse Reactions: Allergies Allergy/AdvReac Type Severity Reaction Status Date / Time aloe Allergy Intermediate RASH Verified 01/16/18 15:27 [place] And Derivatives Allergy Intermediate RASH Verified 01/16/18 15:27 metronidazole Allergy Intermediate RASH Verified 01/16/18 15:27 aspirin Allergy ITCHING Verified 01/16/18 15:27 clopidogrel bisulfate Allergy ITCHING Verified 01/16/18 15:27 [From Plavix] hydromorphone Allergy VOMITING Verified 01/16/18 15:27 ibuprofen Allergy STOMACH Verified 01/16/18 15:27 BLEEDING ketorolac tromethamine Allergy ITCHING Verified 01/16/18 15:27 [From Toradol] lidocaine Allergy RASH Verified 01/16/18 15:27 midazolam HCl [From Versed] Allergy NAUSEA Verified 01/16/18 15:27 vancomycin Allergy ITCHING Verified 01/16/18 15:27 morphine AdvReac Mild ITCHING Verified 01/16/18 15:27 ciprofloxacin [From Cipro] AdvReac SWELLING Verified 01/16/18 15:27 ciprofloxacin HCl AdvReac SWELLING Verified 01/16/18 15:27 [From Cipro] Review of Systems ROS Statement: Except As Marked, All Systems Reviewed And Found Negative Cardiovascular: Negative for: Chest Pain Respiratory: Negative for: Cough, Shortness of Breath Gastrointestinal: Negative for: Nausea, Vomiting, Diarrhea Neurological: Positive for: Weakness (right upper/lower extremities), Seizures (x2), Other (LOC) Physical Exam - Reviewed Nursing Documentation Reviewed: Yes Vital Signs Reviewed: Yes - Physical Exam Appears: Positive for: No Acute Distress Head Exam: Positive for: ATRAUMATIC, NORMAL INSPECTION, NORMOCEPHALIC Skin: Positive for: Normal Color Eye Exam: Positive for: EOMI, Normal appearance, PERRL ENT: Positive for: Normal ENT Inspection Neck: Positive for: Normal Cardiovascular/Chest: Positive for: Regular Rate, Rhythm Respiratory: Positive for: Normal Breath Sounds. Negative for: Respiratory Distress Gastrointestinal/Abdominal: Positive for: Normal Exam, Soft. Negative for: Tenderness Extremity: Negative for: Pedal Edema (bilaterally) Neurologic/Psych: Positive for: Alert, Oriented, Motor/Sensory Deficits (3/5 strength for upper/lower extremities), Other (responds to questions and commands) - ECG O2 Sat by Pulse Oximetry: 94 (RA) Pulse Ox Interpretation: Normal - Progress ED Course And Treament: 1600: Stable. AAOx3. Has capacity to make decisions. Pt. does not want any evaluation, testing, or treatment done for her. Has had seizures many times in the past. and pt. do not want to stay. Aware of possible or decreased functioning for seizures and other causes of her symptoms. Medical Decision Making Medical Decision Making: Time: 1550 --This patient is choosing to leave against medical advice. The provider has personally explained to the patient and family that choosing to do so may result in permanent bodily harm or . The provider discussed at great length that without further evaluation and monitoring there may be unforeseen circumstances and/or deterioration causing permanent bodily harm or as a result of their choice. The patient's family member verbalized these risks back to the physician in laymans terms. The patient is alert, oriented, and shows the mental capacity to make clear decisions regarding the patients health care at this time. The patient continues to wish to leave against medical advice. Advised to return if symptoms worsen or continue. Scribe Attestation: Documented by Aimee Kendrick, acting as a scribe for Amadeo Osuna MD. Provider Scribe Attestation: All medical record entries made by the Scribe were at my direction and personally dictated by me. I have reviewed the chart and agree that the record accurately reflects my personal performance of the history, physical exam, medical decision making, and the department course for this patient. I have also personally directed, reviewed, and agree with the discharge instructions and disposition. Disposition - Clinical Impression Clinical Impression: Seizure - Patient ED Disposition Is Patient to be Admitted: No - Disposition Referrals: formerly [facility] [Outside] - 01/16/18 Disposition: Against Medical Advice Disposition Time: 16:03 Condition: STABLE Additional Instructions: You are going against medical advice. You are aware of possible or decreased functioning from seizures or other causes that causing your symptoms. Return soon as possible for further evaluation and treatment. Instructions: Seizures, Adult (DC)
[2018-01-16 16:47] VITALS: BP 116/74; PULSE 86; RESP 18
== END 2018-01-16 16:30 | disposition left against medical advice (07) ==
LOC: H.ER 15:24
DX: R56.9 Unspecified convulsions (principal)

== ENCOUNTER 2018-03-17 12:17 | Emergency (ER) | payer MEDICAID ==
[2018-03-17 12:17] VITALS: BMI 28.3
[2018-03-17 12:54] VITALS: BP 113/77; PULSE 83; RESP 16; TEMP 97.1; O2SAT 97
[2018-03-17] MEDS ORDERED: Oxycodone/Acetaminophen 5/325 mg Tab PO ONE (14:30)
[2018-03-17] MEDS ORDERED: Oxycodone/Acetaminophen 5/325 mg Tab ONE (14:33)
--- NOTE | 2018-03-17 17:35 | ED PDOC ---
Lower Extremity Pain/Injury Time Seen by Provider: 03/17/18 13:52 Chief Complaint (Nursing): Lower Extremity Problem/Injury Chief Complaint (Provider): Fall History Per: Patient History/Exam Limitations: no limitations Additional Complaint(s): 52 y/o female with history of CVA, seizure disorder, CAD/FL, who presents after fall onto right knee and right hand. Patient states she was in her building when her sock got caught on a piece of the zeinab in the hallway and she fell onto both knees and her right wrist. Patient denies head trauma, loss of consciousness, numbness or tingling in hands or feet. Patient reports having significant pain to her right wrist and right knee but denies left knee pain. 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 Past Medical History Reviewed: Historical Data, Nursing Documentation, Vital Signs Vital Signs: Last Vital Signs Temp 97.1 F L 03/17/18 12:52 Pulse 83 03/17/18 12:52 Resp 16 03/17/18 12:52 BP 113/77 03/17/18 12:52 Pulse Ox 97 03/17/18 12:52 - Medical History PMH: Anxiety, Arthritis, Asthma, Bronchitis, CAD, CVA, Diverticulitis, Deep Vein Thrombosis, Fractures, Gall Bladder Disease, Migraine, Pneumonia, Seizures, TIA Denies: Dementia, HTN, Chronic Kidney Disease - Surgical History Surgical History: Cholecystectomy, Hernia Repair - Family History Family History: States: Unknown Family Hx - Home Medications Home Medications: Ambulatory Orders Medication Instructions Recorded Phenobarbital 6 ml PO TID 07/02/14 Phenytoin [Dilantin] 100 mg PO Q8H #40 09/26/16 ALPRAZolam [Xanax] 1 mg PO BID 02/15/17 Oxycodone HCl/Acetaminophen 10 - 325 mg PO Q6 02/15/17 [Endocet 10-325 mg Tablet] - Allergies Allergies/Adverse Reactions: Allergies Allergy/AdvReac Type Severity Reaction Status Date / Time aloe Allergy Intermediate RASH Verified 03/17/18 12:51 [place] And Derivatives Allergy Intermediate RASH Verified 03/17/18 12:51 metronidazole Allergy Intermediate RASH Verified 03/17/18 12:51 aspirin Allergy anaphylacti Verified 03/17/18 14:30 c clopidogrel bisulfate Allergy ITCHING Verified 03/17/18 12:51 [From Plavix] hydromorphone Allergy VOMITING Verified 03/17/18 12:51 ibuprofen Allergy STOMACH Verified 03/17/18 12:51 BLEEDING ketorolac tromethamine Allergy ITCHING Verified 03/17/18 12:51 [From Toradol] lidocaine Allergy RASH Verified 03/17/18 12:51 midazolam HCl [From Versed] Allergy NAUSEA Verified 03/17/18 12:51 vancomycin Allergy ITCHING Verified 03/17/18 12:51 morphine AdvReac Mild ITCHING Verified 03/17/18 12:51 ciprofloxacin [From Cipro] AdvReac SWELLING Verified 03/17/18 12:51 ciprofloxacin HCl AdvReac SWELLING Verified 03/17/18 12:51 [From Cipro] Review of Systems ROS Statement: Except As Marked, All Systems Reviewed And Found Negative Musculoskeletal: Positive for: Hand Pain (right), Leg Pain (bilateral knees) Neurological: Negative for: Numbness, Other (LoC) Physical Exam - Reviewed Nursing Documentation Reviewed: Yes Vital Signs Reviewed: Yes - Physical Exam Appears: Positive for: Uncomfortable Head Exam: Positive for: ATRAUMATIC, NORMOCEPHALIC Extremity: Positive for: Normal ROM (Right wrist: inability to extend at 2nd, 3rd or 4th digits (chronic) able to partially extend digits; has partial ROM with active extension; right knee: able to passively and actively extend at knee; Normal ROM at ankle of both ankles), Tenderness (Right wrist: point tenderness at anterior aspect of right wrist; Right knee: tenderness to palpation medial to patella), Swelling (Edema at right wrist, edema to right hand; no edema to left knee or right knee). Negative for: Deformity (right wrist), Other (erythema, ecchymosis, excoriation) Neurologic/Psych: Positive for: Alert, Oriented, Other (sensations intact in bilateral lower extremities). Negative for: Motor/Sensory Deficits - ECG O2 Sat by Pulse Oximetry: 97 (RA) Pulse Ox Interpretation: Normal Medical Decision Making Medical Decision Making: Time: 14:30 Initial Impression: hand and knee injury s/p fall Initial Plan: * RAD - right knee * RAD - right wrist * Percocete 5/325 PO x1 * unable to tolerate ibuprofen per history * ice to rt wrist and rt knee 17:44 RAD Right Knee IMPRESSION: Demineralization regional bones. Possible nondisplaced cortical fracture the medial aspect of the patella. Clinical correlation advised. 17:45 RAD Right Wrist IMPRESSION: Demineralization of the regional bones. Mild osteoarthritic changes present. Right knee immobilizer placed and pt advised to f/u with orthopedics for further evaluation of possible patellar fracture. Percocet or Tylenol for pain. RICE therapy for Right wrist pain. Scribe Attestation: Documented by Howie Ashford, acting as a scribe for Allison Foss PA-C. Provider Scribe Attestation: All medical record entries made by the Scribe were at my direction and personally dictated by me. I have reviewed the chart and agree that the record accurately reflects my personal performance of the history, physical exam, medical decision making, and the department course for this patient. I have also personally directed, reviewed, and agree with the discharge instructions and disposition. Disposition - Clinical Impression Clinical Impression: Wrist sprain, Knee fracture, right - Patient ED Disposition Is Patient to be Admitted: No - Disposition Disposition: Routine/Home Disposition Time: 18:00 Condition: STABLE Additional Instructions: Take Percocet or Tylenol for pain. F/u with your own orthopedist on Monday. Place Ice on the knee and wrist today to reduce swelling. Keep knee elevated and do not bear weight on it until you follow-up with your orthopedist. Instructions: Wrist Sprain (DC) Forms: [employer] (Tongan) Print Language: GREENLANDIC
--- NOTE | 2018-03-18 07:11 | RAD ---
Date of service: 03/17/2018 PROCEDURE: Right Wrist Radiographs. HISTORY: fall on Right hand COMPARISON: None. FINDINGS: BONES: Normal. No fracture. JOINTS: Normal. No dislocation. SOFT TISSUES: Normal. OTHER FINDINGS: None. IMPRESSION: Normal right wrist radiographs.
--- NOTE | 2018-03-18 10:18 | RAD ---
Date of service: 03/17/2018 PROCEDURE: Right Knee Radiographs. HISTORY: fall onto Right knee COMPARISON: None. FINDINGS: BONES: Normal. No fracture. JOINTS: Normal. No osteoarthritis. JOINT EFFUSION: None. OTHER FINDINGS: None. IMPRESSION: Normal radiographs of the right knee.
== END 2018-03-17 18:05 | disposition home or self-care (01) ==
LOC: H.ER 12:17
DX: S63.301A Traumatic rupture of unspecified ligament of right wrist, initial encounter (principal); S82.091A Other fracture of right patella, initial encounter for closed fracture; W01.0XXA Fall on same level from slipping, tripping and stumbling without subsequent striking against object, initial encounter; Y93.H3 Activity, building and construction; Y92.9 Unspecified place or not applicable; J45.909 Unspecified asthma, uncomplicated; Z86.718 Personal history of other venous thrombosis and embolism; Z86.73 Personal history of transient ischemic attack (TIA), and cerebral infarction without residual deficits; Z88.5 Allergy status to narcotic agent

== ENCOUNTER 2018-07-29 00:40 | Emergency (ER) | payer MEDICAID ==
[2018-07-29 00:40] VITALS: BMI 27.0
[2018-07-29 01:10] VITALS: TEMP 98.4
[2018-07-29] MEDS ORDERED: Oxycodone/Acetaminophen 5/325 mg Tab PO STA (02:20)
[2018-07-29] MEDS ORDERED: Oxycodone/Acetaminophen 5/325 mg Tab ONE (02:49)
[2018-07-29 02:59] LABS: BASO # 0.1 K/uL (0.0-0.2); EOS # 0.1 K/uL (0.0-0.7); EOS % 1.2 % (0.0-4.0); HEMOGLOBIN 13.2 g/dL (12.0-16.0); LYMPH # 2.6 K/uL (1.0-4.3); MEAN CELL VOLUME 85.8 fl (81.0-99.0); MEAN CORPUSCULAR HEMOGLOBIN 28.9 pg (27.0-31.0); MEAN CORPUSCULAR HGB CONC 33.7 g/dL (33.0-37.0); MEAN PLATELET VOLUME 6.5 fl (7.2-11.7); MONO # 0.3 K/uL (0.0-0.8); MONO % 5.1 % (0.0-10.0); NEUT # 2.6 K/uL (1.8-7.0); NEUT % 46.7 % (50.0-75.0); NRBC % 0.2 % (0.0-0.0); RBC 4.55 Mil/uL (3.80-5.20); RED CELL DISTRIBUTION WIDTH 14.1 % (11.5-14.5); WHITE BLOOD COUNT 5.6 K/uL (4.8-10.8)
[2018-07-29 03:11] LABS: ALB/GLOB RATIO 1.1 (1.0-2.1); ALBUMIN 4.1 g/dL (3.5-5.0); ALT/SGPT 28 U/L (9-52); AST/SGOT 32 U/L (14-36); BLOOD UREA NITROGEN 6 mg/dl (7-17); CALCIUM 9.1 mg/dL (8.4-10.2); GFR NON-AFRICAN AMERICAN > 60; LIPASE 42 U/L (23-300)
[2018-07-29 03:13] LABS: PROTHROMBIN TIME 11.1 Seconds (9.8-13.1)
[2018-07-29 03:16] LABS: PARTIAL THROMBOPLASTIN TIME 34.2 Seconds (25.6-37.1)
[2018-07-29] MEDS ORDERED: Iohexol 300 100 ML IJ ONE (03:27)
[2018-07-29] MEDS ORDERED: Sodium Chloride 0.9% 50 ML IV ONE (03:27)
[2018-07-29 05:53] VITALS: BP 110/70; PULSE 83; RESP 18; O2SAT 99
--- NOTE | 2018-07-29 06:20 | ED PDOC ---
HPI: Trauma/Fall - HPI Time Seen by Provider: 07/29/18 02:00 Chief Complaint (Nursing): Abdominal Pain Chief Complaint (Provider): Fall-type injury History Per: Patient History/Exam Limitations: no limitations Onset/Duration Of Symptoms: Hrs Additional Complaint(s): 53 year old female, with a past medical history of CVA, CAD, and seizure disorder, presents to the ED with a fall. Patient states she has chronic weakness in her legs and tripped and fell hitting her knees on the ground. Patient reports pain radiates down her leg and feels like she strained her abdo men. Since falling, her abdomen has become more swollen. She reports having 2 episodes of bright red blood mixed with normal colored stool. PMD: Dontae Caputo Past Medical History Reviewed: Historical Data, Nursing Documentation, Vital Signs Vital Signs: Last Vital Signs Temp 98.4 F 07/29/18 01:09 Pulse 83 07/29/18 05:53 Resp 18 07/29/18 05:53 BP 110/70 07/29/18 05:53 Pulse Ox 99 07/29/18 05:53 - Medical History PMH: Anxiety, Arthritis, Asthma, Bronchitis, CAD, CVA, Diverticulitis, Deep Vein Thrombosis, Fractures, Gall Bladder Disease, Migraine, Pneumonia, Seizures, TIA Denies: Dementia, HTN, Chronic Kidney Disease - Surgical History Surgical History: Cholecystectomy, Hernia Repair - Family History Family History: States: Unknown Family Hx - Home Medications Home Medications: Ambulatory Orders Medication Instructions Recorded Phenobarbital 6 ml PO TID 07/02/14 Phenytoin [Dilantin] 100 mg PO Q8H #40 09/26/16 ALPRAZolam [Xanax] 1 mg PO BID 02/15/17 Oxycodone HCl/Acetaminophen 10 - 325 mg PO Q6 02/15/17 [Endocet 10-325 mg Tablet] - Allergies Allergies/Adverse Reactions: Allergies Allergy/AdvReac Type Severity Reaction Status Date / Time aloe Allergy Intermediate RASH Verified 07/29/18 01:10 [place] And Derivatives Allergy Intermediate RASH Verified 07/29/18 01:10 metronidazole Allergy Intermediate RASH Verified 07/29/18 01:10 aspirin Allergy anaphylacti Verified 07/29/18 01:10 c clopidogrel bisulfate Allergy ITCHING Verified 07/29/18 01:10 [From Plavix] hydromorphone Allergy VOMITING Verified 07/29/18 01:10 ibuprofen Allergy STOMACH Verified 07/29/18 01:10 BLEEDING ketorolac tromethamine Allergy ITCHING Verified 07/29/18 01:10 [From Toradol] lidocaine Allergy RASH Verified 07/29/18 01:10 midazolam HCl [From Versed] Allergy NAUSEA Verified 07/29/18 01:10 vancomycin Allergy ITCHING Verified 07/29/18 01:10 morphine AdvReac Mild ITCHING Verified 07/29/18 01:10 ciprofloxacin [From Cipro] AdvReac SWELLING Verified 07/29/18 01:10 ciprofloxacin HCl AdvReac SWELLING Verified 07/29/18 01:10 [From Cipro] Review of Systems ROS Statement: Except As Marked, All Systems Reviewed And Found Negative Gastrointestinal: Positive for: Hematochezia (bright red blood mixed with normal colored stool), Other (Swollen abdomen) Musculoskeletal: Positive for: Other (Knee injury) Physical Exam - Reviewed Nursing Documentation Reviewed: Yes Vital Signs Reviewed: Yes - Physical Exam Appears: Positive for: No Acute Distress Head Exam: Positive for: ATRAUMATIC, NORMOCEPHALIC Skin: Positive for: Normal Color, Warm, Dry Eye Exam: Positive for: Normal appearance Neck: Positive for: Normal, Painless ROM Cardiovascular/Chest: Positive for: Regular Rate, Rhythm Respiratory: Positive for: Normal Breath Sounds. Negative for: Wheezing, Respiratory Distress Gastrointestinal/Abdominal: Positive for: Tenderness (diffusely: left worse than right), Distended Extremity: Positive for: Normal ROM (Limited ROM secondary to pain; able to fully straigthen leg), Tenderness (Right knee with tenderess to palpation), Other (Right knee: (+) effusion, (-) erythema, (-)crepitus or (-) bony abnormality) Neurological/Psych: Positive for: Awake, Alert, Normal Tone, Oriented - Laboratory Results Result Diagrams: 07/29/18 02:56 07/29/18 02:56 Lab Results: PT 11.1 Seconds (9.8-13.1) 07/29/18 03:05 INR 1.0 07/29/18 03:05 APTT 34.2 Seconds (25.6-37.1) 07/29/18 03:05 Total Bilirubin 0.3 mg/dl (0.2-1.3) 07/29/18 02:56 AST 32 U/L (14-36) 07/29/18 02:56 ALT 28 U/L (9-52) 07/29/18 02:56 Alkaline Phosphatase 135 U/L (38-126) H D 07/29/18 02:56 Total Protein 7.6 G/DL (6.3-8.2) 07/29/18 02:56 Albumin 4.1 g/dL (3.5-5.0) 07/29/18 02:56 Globulin 3.5 gm/dL (2.2-3.9) 07/29/18 02:56 Albumin/Globulin Ratio 1.1 (1.0-2.1) 07/29/18 02:56 Lipase 42 U/L (23-300) 07/29/18 02:56 - ECG O2 Sat by Pulse Oximetry: 99 (RA) Pulse Ox Interpretation: Normal Medical Decision Making Medical Decision Making: Initial Impression: Abdominal and knee pain after fall; knee is most likely contused so will get an X-ray. Initial Plan: --CT abd/pelvis --CMP --Lipase stat --CBC --PTT --Prothrombin time --Knee X-ray --Percocet 1 tab PO --Occult blood stool stat Will order CT abd/pelvis to r/o intra abdominal bleeding. 04:39 CT abd/pelvis Bilateral basilar subsegmental atelectatic pulmonary changes. Uncomplicated colonic diverticulosis. Mild amount of fecal residue is noted in the large bowels. Prior cholecystectomy. Fluid-filled stomach. Fluid filled small bowels. The liver is of uniform attenuation without mass or defect. There is no intra or extrahepatic biliary ductal dilatation. The spleen is normal. The gallbladder is within normal limits. The pancreas is of normal contour and attenuation characteristics. There is no evidence of adrenal mass. Both kidneys demonstrate prompt and equal nephrograms. The kidneys are normal in size, shape and configuration. There is no evidence of renal or ureteral mass. N o renal or ureteral calculi are identified. There is no hydroureter or hydronephrosis. No evidence for appendicitis. There is no bowel wall thickening. No evidence for small or large bowel obstruction. There is no evidence of abdominal ascites or lymphadenopathy. There is no evidence of intrinsic or extrinsic bladder mass. There is no pelvic ascites or lymphadenopathy. Images of the lung bases show no evidence of pleural or parenchymal mass. There are no pleural effusions. The bony structures are free of lytic or blastic lesions. IMPRESSION: Bilateral basilar subsegmental atelectatic pulmonary changes. Uncomplicated colonic diverticulosis. Mild amount of fecal residue is noted in the large bowels. Prior cholecystectomy. Fluid-filled stomach. Fluid filled small bowels. Mild ileus. 05:32 Knee X-ray Findings: Prepatellar soft tissue edema and swelling. Normal medial femorotibial compartment. Normal lateral femorotibial compartment. Normal patellofemoral articulation. Normal visualized distal femur. Normal visualized proximal tibia and fibula. Normal proximal tibiofibular articulation. IMPRESSION: No radiographic evidence of an acute pathology. Prepatellar soft tissue contusion. Patient is feeling well All results were given to patient, advised her to followup with Dr. Emerson tomorrow Knee was wrapped, recommended RICE --- Scribe Attestation: Documented by Charly Manning acting as a scribe for Salvatore Snowden MD. Provider Scribe Attestation: All medical record entries made by the Scribe were at my direction and personally dictated by me. I have reviewed the chart and agree that the record accurately reflects my personal performance of the history, physical exam, medical decision making, and the department course for this patient. I have also personally directed, reviewed, and agree with the discharge instructions and disposition. Disposition - Clinical Impression Clinical Impression: Diverticulosis - Patient ED Disposition Is Patient to be Admitted: No Counseled Patient/Family Regarding: Studies Performed, Diagnosis, Need For Followup - Disposition Referrals: Dontae Emerson MD [Family Provider] - Disposition: Routine/Home Disposition Time: 05:47 Condition: IMPROVED Additional Instructions: Please see Dr. Emerson tomorrow as previously scheduled. Instructions: Diverticulosis, Contusion (DC) Forms: [employer] (Divehi)
--- NOTE | 2018-07-29 11:52 | RAD ---
Date of service: 07/29/2018 PROCEDURE: Right Knee Radiographs. HISTORY: fall COMPARISON: None. TECHNIQUE: 2 views obtained. FINDINGS: BONES: No acute fracture. JOINTS: Mild tibial femoral compartment narrowing with trace degenerative spurring. JOINT EFFUSION: None. OTHER FINDINGS: Prepatellar soft tissue swelling. IMPRESSION: No demonstrated fracture or dislocation. Very mild arthritic changes.
--- NOTE | 2018-07-29 11:57 | CT ---
Date of service: 07/29/2018 PROCEDURE: CT Abdomen and Pelvis with contrast HISTORY: difufse abd pain, fall COMPARISON: CT scan of the abdomen pelvis dated 05/04/2017 TECHNIQUE: Contrast dose: 90 mL Omnipaque 300 Radiation dose: Total exam DLP = 786.16 mGy-cm. This CT exam was performed using one or more of the following dose reduction techniques: Automated exposure control, adjustment of the mA and/or kV according to patient size, and/or use of iterative reconstruction technique. FINDINGS: LOWER THORAX: Unremarkable. LIVER: Unremarkable. No gross lesion or ductal dilatation. GALLBLADDER AND BILE DUCTS: Prior cholecystectomy with surgical clips in place. PANCREAS: Unremarkable. No gross lesion or ductal dilatation. SPLEEN: Unremarkable. ADRENALS: Unremarkable. No mass. KIDNEYS AND URETERS: Unremarkable. No hydronephrosis. No solid mass. VASCULATURE: Moderate to severe left common iliac artery stenosis. No aortic aneurysm. Aortic atherosclerotic calcification and mural plaque present. BOWEL: Colonic diverticulosis. Previous descending colonic surgery. No obstruction. No gross mural thickening. APPENDIX: Normal appendix. PERITONEUM: Prior ventral abdominal wall hernia repair with mesh with abdominal wall protrusion. No free fluid. No free air. LYMPH NODES: Unremarkable. No enlarged lymph nodes. BLADDER: Unremarkable. REPRODUCTIVE: Unremarkable. BONES: No acute fracture. OTHER FINDINGS: None. IMPRESSION: No acute abdominal pelvic pathology. Multiple nonacute findings as above.
== END 2018-07-29 06:16 | disposition home or self-care (01) ==
LOC: H.ER 00:40
DX: S80.00XA Contusion of unspecified knee, initial encounter (principal); W01.0XXA Fall on same level from slipping, tripping and stumbling without subsequent striking against object, initial encounter; Y92.89 Other specified places as the place of occurrence of the external cause; K57.30 Diverticulosis of large intestine without perforation or abscess without bleeding; Z86.73 Personal history of transient ischemic attack (TIA), and cerebral infarction without residual deficits; G40.909 Epilepsy, unspecified, not intractable, without status epilepticus
CPT/HCPCS: 73562; 74177; 80053; 83690; 85025; 85610; 85730; 99284; G0328; Q9967